=== PATIENT | male | born 1975 | race Hispanic/Latino ===

== ENCOUNTER 2018-11-16 09:40 | Inpatient (IN) ==
[2018-11-16 10:01] LABS: BASO# 0.02 X1000 (0.0-0.2); BASO% 0.2 % (0.0-0.8); EOS# 0.16 X1000 (0.0-0.7); EOS% 1.4 % (0.0-10.0); HEMATOCRIT 34.3 % (42.0-52.0); HEMOGLOBIN 11.9 g/dL (14.0-18.0); LYMPH# 1.51 X1000 (1.2-3.4); LYMPH% 13.7 % (20.5-51.1); MCH 37.7 PG (27-31); MCHC 34.7 g/dL (33-37); MCV 108.5 FL (81-99); MONO# 1.36 X1000 (0.11-0.59); MONO% 12.3 % (1.7-9.3); MPV 10.8 FL (7.4-10.4); NEUT% 72.4 % (42.2-75.2); PLT 125 X1000 (130-400); RBC 3.16 XMIL (4.7-6.1); WBC 11.05 X1000 (4.8-10.8)
[2018-11-16 10:14] LABS: URINE SOURCE CLEAN CATCH
[2018-11-16 10:17] LABS: BILIRUBIN URINE NEGATIVE (NEGATIVE); BLOOD URINE NEGATIVE (NEGATIVE); COLOR ORANGE; GLUCOSE URINE NEGATIVE (NEGATIVE); KETONE URINE TRACE mg/dL (NEGATIVE); LEUKOCYTES URINE TRACE (NEGATIVE); NITRITE URINE NEGATIVE (NEGATIVE); PROTEIN URINE 70 mg/dL (NEGATIVE); SP GRAVITY URINE 1.033; TURBIDITY URINE HAZY (CLEAR); UROBILINOGEN URINE 4 mg/dL (NORMAL)
[2018-11-16 10:19] LABS: AGAP 10; ALB/GLOB RATIO 0.7; ALBUMIN 2.7 g/dL (3.5-5.0); ALKALINE PHOSPHATASE 340 U/L (32-122); AMYLASE 66 U/L (20-200); BUN 9 mg/dL (8-22); CALCIUM 7.7 mg/dL (8.8-10.2); CHLORIDE 101 mmol/L (98-107); COSMO 267; CREATININE 0.9 mg/dL (0.7-1.2); ESTIMATED GFR > 60; GLUCOSE 127 mg/dL (70-104); GOT 122 U/L (10-34); GPT 52 U/L (10-44); LIPASE 38 U/L (13-60); POTASSIUM 4.1 mmol/L (3.5-5.1); SODIUM 133 mmol/L (136-145); TCO2 22 mmol/L (25-35); TOTAL BILIRUBIN 3.45 mg/dL (0.20-1.00); TOTAL PROTEIN 6.8 g/dL (6.3-8.3)
[2018-11-16 10:23] LABS: UR EPITHELIAL CELLS <10 /HPF (<10); URINE BACTERIA NEGATIVE /HPF; URINE WBC <10 /HPF (<10)
[2018-11-16 10:30] LABS: URINE CASTS NONE SEEN; URINE CRYSTALS CA OXALATE PRESENT
--- NOTE | 2018-11-16 10:32 | PROVIDER DOCUMENTATION ---
HPI-Abdominal Pain/GI Problem - General Chief Complaint: Abdominal Pain Stated Complaint: ABDOMINAL SWELLING RECHECK Time Seen by Provider: 11/16/18 10:16 Allergies/Adverse Reactions: Patient Allergies Allergy/AdvReac Type Severity Reaction Status Date / Time No Known Allergies Allergy Verified 11/16/18 09:53 Home Medications: Home Medication List Medication Instructions Recorded Confirmed Last Taken Type Pantoprazole [Protonix] 40 mg PO DAILY@0700 #90 tab 07/20/18 Unknown Rx Folic Acid 1 mg PO DAILY #30 tab 11/11/18 Unknown Rx Spironolactone [Aldactone] 25 mg PO DAILY #30 tab 11/11/18 Unknown Rx Thiamine [Vitamin B-1] 100 mg PO DAILY #30 tab 11/11/18 Unknown Rx Past History - Adult - PAST MEDICAL HISTORY-ADULT Major Childhood Illnesses: reports: denies history Cardiovascular: reports: denies history Respiratory: reports: denies history Gastrointestinal: reports: denies history Obstetrical/Gynecological: reports: denies history Genitourinary: reports: denies history Musculoskeletal: reports: denies history Neurological: reports: denies history Endocrine/Immune: reports: denies history Other Conditions: reports: denies history - PRIOR SURGERIES/PROCEDURES Surgical/Procedure History: reports: reviewed, not pertinent - IMMUNIZATION STATUS Childhood Immunizations: See Nurse Assessment Flu Vaccine: See Nurse Assessment Progress - PLAN OF CARE/RESULTS Progress/Plan/Lab Results: Vital Signs - 8 hr 11/16/18 09:51 Temperature 97.9 F Pulse Rate 113 H Respiratory Rate 18 Blood Pressure 121/84 O2 Sat by Pulse Oximetry 100 Laboratory Results - last 24 hr 11/16/18 11/16/18 11/16/18 09:51 09:51 09:51 WBC 11.05 H RBC 3.16 L Hgb 11.9 L Hct 34.3 L MCV 108.5 H MCH 37.7 H MCHC 34.7 RDW Std Deviation 13.0 Plt Count 125 L MPV 10.8 H Neut % (Auto) 72.4 Lymph % (Auto) 13.7 L [place] % (Auto) 12.3 H Eos % (Auto) 1.4 Baso % (Auto) 0.2 Neut # (Auto) 8.00 H Lymph # (Auto) 1.51 [place] # (Auto) 1.36 H Eos # (Auto) 0.16 Baso # (Auto) 0.02 Sodium 133 L Potassium 4.1 Chloride 101 Carbon Dioxide 22 L Anion Gap 10 BUN 9 Creatinine 0.9 Estimated GFR/1.73 m2 > 60 BUN/Creatinine Ratio 10 Glucose 127 H Calculated Osmolality 267 Calcium 7.7 L Total Bilirubin 3.45 H AST 122 H ALT 52 H Alkaline Phosphatase 340 H Total Protein 6.8 Albumin 2.7 L Globulin 4.1 Albumin/Globulin Ratio 0.7 Amylase 66 Lipase 38 Urine Source Urine Color Urine Turbidity Urine pH Ur Specific [place] Urine Protein Ur Glucose (Stick) Ur Ketones (Stick) Urine Blood Urine Nitrite Urine Bilirubin Urobilinogen Dipstick Urine Leukocytes Urine WBC (Auto) Urine RBC (Auto) U Epithel Cells (Auto) Urine Bacteria (Auto) Urine Crystals Small Round Cells Urine Casts Urine Yeast-like Cells Plasma/Serum Ethyl Alc 11/16/18 10:08 WBC RBC Hgb Hct MCV MCH MCHC RDW Std Deviation Plt Count MPV Neut % (Auto) Lymph % (Auto) [place] % (Auto) Eos % (Auto) Baso % (Auto) Neut # (Auto) Lymph # (Auto) [place] # (Auto) Eos # (Auto) Baso # (Auto) Sodium Potassium Chloride Carbon Dioxide Anion Gap BUN Creatinine Estimated GFR/1.73 m2 BUN/Creatinine Ratio Glucose Calculated Osmolality Calcium Total Bilirubin AST ALT Alkaline Phosphatase Total Protein Albumin Globulin Albumin/Globulin Ratio Amylase Lipase Urine Source CLEAN CATCH Urine Color ORANGE Urine Turbidity HAZY Urine pH 6.0 Ur Specific [place] 1.033 Urine Protein 70 A Ur Glucose (Stick) NEGATIVE Ur Ketones (Stick) TRACE A Urine Blood NEGATIVE Urine Nitrite NEGATIVE Urine Bilirubin NEGATIVE Urobilinogen Dipstick 4 A Urine Leukocytes TRACE A Urine WBC (Auto) <10 Urine RBC (Auto) 10-20 A U Epithel Cells (Auto) <10 Urine Bacteria (Auto) NEGATIVE Urine Crystals CA OXALATE PRESENT Small Round Cells Not Reportable Urine Casts NONE SEEN Urine Yeast-like Cells Not Reportable Plasma/Serum Ethyl Alc Orders Category Date Time Status Saline Loc DIRECTED Care 11/16/18 09:52 Active NPO Diet 11/16/18 09:52 Active ALCOHOL BLOOD Stat Lab 11/16/18 09:51 Completed AMMONIA [CHEM] Stat Lab 11/16/18 10:07 Ordered AMYLASE [CHEM] Stat Lab 11/16/18 09:51 Completed CBC WITH ELECTRONIC DIFF [HEME] Stat Lab 11/16/18 09:51 Completed COMPREHENSIVE METABOLIC PANEL [CHEM] Stat Lab 11/16/18 09:51 Completed LIPASE [CHEM] Stat Lab 11/16/18 09:51 Completed URINALYSIS W/POSS RFLX CULT [URINALYSIS] Stat Lab 11/16/18 10:08 Completed URINE CULTURE [RM] Routine Lab 11/16/18 10:23 Received URINE MANUAL MICROSCOPIC [URINALYSIS] Stat Lab 11/16/18 10:08 Completed Result Diagrams: 11/16/18 09:51 11/16/18 09:51 Departure - Departure Referrals and Follow-Ups: None,PCP [Primary Care Provider] -
[2018-11-16] MEDS ORDERED: LEVAQUIN PO ONE (10:44)
[2018-11-16] MEDS ORDERED: MORPHINE IV ONE ×2 (10:49→20:13)
[2018-11-16] MEDS ORDERED: ZOFRAN IV ONE (10:50)
[2018-11-16 10:53] LABS: INR 1.22; PROTIME 16.3 Seconds (11.0-16.0)
[2018-11-16 10:54] LABS: PTT 40.6 Seconds (22.3-41.8)
--- NOTE | 2018-11-16 10:57 | PROVIDER DOCUMENTATION ---
This chart was entered by Stephie Orourke Scribe, acting as scribe for Michael Martin MD. HPI-Abdominal Pain/GI Problem - General Chief Complaint: Abdominal Pain Stated Complaint: ABDOMINAL SWELLING RECHECK Time Seen by Provider: 11/16/18 10:16 Source: patient, old records Allergies/Adverse Reactions: Patient Allergies Allergy/AdvReac Type Severity Reaction Status Date / Time No Known Allergies Allergy Verified 11/16/18 09:53 Home Medications: Home Medication List Medication Instructions Recorded Confirmed Last Taken Type Pantoprazole [Protonix] 40 mg PO DAILY@0700 #90 tab 07/20/18 11/16/18 Unknown Rx Folic Acid 1 mg PO DAILY #30 tab 11/11/18 11/16/18 11/15/18 12:00 Rx Spironolactone [Aldactone] 25 mg PO DAILY #30 tab 11/11/18 11/16/18 11/15/18 12: 00 Rx Thiamine [Vitamin B-1] 100 mg PO DAILY #30 tab 11/11/18 11/16/18 11/15/18 12:00 Rx - History of Present Illness-ABD Nature of Presenting Problems: 43 y/o male presents to ED with worsening abdominal pain/swelling/bruising and diarrhea. Pt reports he was admitted 8 days ago for same and had paracentesis. Pt is alert and oriented. Abdominal Pain Onset Location: reports: generalized abdomen Pain Radiation: reports: no radiation Quality of Pain: reports: fullness Severity in ED: reports: moderate Onset/Duration: reports: unsure Timing: reports: still present, getting worse Activities at Onset: reports: none Exposure to sick contacts?: No Modifying Factors: improves with: nothing Associated Symptoms: reports: diarrhea, other (abdominal pain, bruising, swelling) Last BM: unsure Dark Stools Present?: reports: none noticed Rectal Bleeding: reports: none Rectal Pain: reports: none Similar Symptoms Previously?: Yes Recently seen or treated by another doctor?: Yes (admitted 8 days ago) Review of Systems - Adult - REVIEW OF SYSTEMS - ADULT Constitutional: denies: chills, fever Eyes: reports: no symptoms reported Ears, Nose, Mouth & Throat: reports: no symptoms reported Cardiovascular: denies: chest pain, palpitations Respiratory: denies: cough, shortness of breath Gastrointestinal: reports: abdominal pain, diarrhea, other (abdominal swelling/ bruising). denies: nausea, vomiting Genitourinary: reports: no symptoms reported Musculoskeletal: denies: back pain, joint pain Integumentary: reports: no symptoms reported Neurological: denies: dizziness/vertigo, seizure Psychiatric: reports: no symptoms reported Endocrine: reports: no symptoms reported Hematologic/Lymphatic: reports: no symptoms reported Allergic/Immunologic: reports: no symptoms reported All Other Systems: Reviewed and Negative Past History - Adult - PAST MEDICAL HISTORY-ADULT Review of Records: reports: Old Records Reviewed, Nursing Assessment Review, Medications Reviewed Major Childhood Illnesses: reports: denies history Cardiovascular: reports: denies history Respiratory: reports: denies history Gastrointestinal: reports: denies history, other (cirrhosis) Obstetrical/Gynecological: reports: denies history Genitourinary: reports: denies history Musculoskeletal: reports: denies history Neurological: reports: denies history Endocrine/Immune: reports: denies history Other Conditions: reports: denies history - PRIOR SURGERIES/PROCEDURES Surgical/Procedure History: reports: reviewed, not pertinent, orthopedic ( extremity) (bilateral legs, knee), other (nose) - IMMUNIZATION STATUS Childhood Immunizations: See Nurse Assessment Flu Vaccine: See Nurse Assessment - FAMILY HISTORY Family History: reviewed, not pertinent - SOCIAL HISTORY Smoking: greater than 1 pack/day Provider spent 3-5 mins advising pt. on dangers of tobacco.: Discussed manners to quit use, and f/u contacts for add'l counseling. Substance Use: alcohol, marijuana Alcohol Use Frequency: every day Living Situation: family Physical Exam-General - PHYSICAL EXAM-ADULT Initial Vital Signs Reviewed: Yes - CONSTITUTIONAL General Appearance: appears well, alert, no apparent distress - EYES Eyes: PERRL/EOMI, pink conjunctivae - HEAD, EARS, NOSE, MOUTH & THROAT HENMT: normocephalic/atraumatic, moist mucous membranes, normal ENT inspection - NECK Neck: non-tender, full range of motion - RESPIRATORY Respiratory: chest non-tender, lungs clear, normal breath sounds - CARDIOVASCULAR Cardiovascular: normal peripheral pulses, regular rate, rhythm - GASTROINTESTINAL (ABDOMEN) Abdominal Exam: normal bowel sounds, soft, distended, tenderness (diffuse), other (ascites) - MUSCULOSKELETAL Back Exam: normal inspection, no CVA tenderness Extremity: normal range of motion, non-tender, normal gait - SKIN Integumentary: normal color, warm/dry - NEUROLOGIC Neurologic: grossly normal - PSYCHIATRIC Psych/Mental Status: normal mood/affect, normal thought content, normal thought process Progress - PLAN OF CARE/RESULTS Progress/Plan/Lab Results: Vital Signs - 8 hr 11/16/18 09:51 Temperature 97.9 F Pulse Rate 113 H Respiratory Rate 18 Blood Pressure 121/84 O2 Sat by Pulse Oximetry 100 Laboratory Results - last 24 hr 11/16/18 11/16/18 11/16/18 09:51 09:51 09:51 WBC 11.05 H RBC 3.16 L Hgb 11.9 L Hct 34.3 L MCV 108.5 H MCH 37.7 H MCHC 34.7 RDW Std Deviation 13.0 Plt Count 125 L MPV 10.8 H Neut % (Auto) 72.4 Lymph % (Auto) 13.7 L [place] % (Auto) 12.3 H Eos % (Auto) 1.4 Baso % (Auto) 0.2 Neut # (Auto) 8.00 H Lymph # (Auto) 1.51 [place] # (Auto) 1.36 H Eos # (Auto) 0.16 Baso # (Auto) 0.02 Sodium 133 L Potassium 4.1 Chloride 101 Carbon Dioxide 22 L Anion Gap 10 BUN 9 Creatinine 0.9 Estimated GFR/1.73 m2 > 60 BUN/Creatinine Ratio 10 Glucose 127 H Calculated Osmolality 267 Calcium 7.7 L Total Bilirubin 3.45 H AST 122 H ALT 52 H Alkaline Phosphatase 340 H Total Protein 6.8 Albumin 2.7 L Globulin 4.1 Albumin/Globulin Ratio 0.7 Amylase 66 Lipase 38 Urine Source Urine Color Urine Turbidity Urine pH Ur Specific [place] Urine Protein Ur Glucose (Stick) Ur Ketones (Stick) Urine Blood Urine Nitrite Urine Bilirubin Urobilinogen Dipstick Urine Leukocytes Urine WBC (Auto) Urine RBC (Auto) U Epithel Cells (Auto) Urine Bacteria (Auto) Urine Crystals Small Round Cells Urine Casts Urine Yeast-like Cells Plasma/Serum Ethyl Alc 11/16/18 10:08 WBC RBC Hgb Hct MCV MCH MCHC RDW Std Deviation Plt Count MPV Neut % (Auto) Lymph % (Auto) [place] % (Auto) Eos % (Auto) Baso % (Auto) Neut # (Auto) Lymph # (Auto) [place] # (Auto) Eos # (Auto) Baso # (Auto) Sodium Potassium Chloride Carbon Dioxide Anion Gap BUN Creatinine Estimated GFR/1.73 m2 BUN/Creatinine Ratio Glucose Calculated Osmolality Calcium Total Bilirubin AST ALT Alkaline Phosphatase Total Protein Albumin Globulin Albumin/Globulin Ratio Amylase Lipase Urine Source CLEAN CATCH Urine Color ORANGE Urine Turbidity HAZY Urine pH 6.0 Ur Specific [place] 1.033 Urine Protein 70 A Ur Glucose (Stick) NEGATIVE Ur Ketones (Stick) TRACE A Urine Blood NEGATIVE Urine Nitrite NEGATIVE Urine Bilirubin NEGATIVE Urobilinogen Dipstick 4 A Urine Leukocytes TRACE A Urine WBC (Auto) <10 Urine RBC (Auto) 10-20 A U Epithel Cells (Auto) <10 Urine Bacteria (Auto) NEGATIVE Urine Crystals CA OXALATE PRESENT Small Round Cells Not Reportable Urine Casts NONE SEEN Urine Yeast-like Cells Not Reportable Plasma/Serum Ethyl Alc Orders Category Date Time Status Saline Loc DIRECTED Care 11/16/18 09:52 Active NPO Diet 11/16/18 09:52 Active ALCOHOL BLOOD Stat Lab 11/16/18 09:51 Completed AMMONIA [CHEM] Stat Lab 11/16/18 10:07 Ordered AMYLASE [CHEM] Stat Lab 11/16/18 09:51 Completed CBC WITH ELECTRONIC DIFF [HEME] Stat Lab 11/16/18 09:51 Completed COMPREHENSIVE METABOLIC PANEL [CHEM] Stat Lab 11/16/18 09:51 Completed LIPASE [CHEM] Stat Lab 11/16/18 09:51 Completed PROTIME WITH INR [COAG] Stat Lab 11/16/18 10:39 Uncollected PTT [COAG] Stat Lab 11/16/18 10:39 Uncollected URINALYSIS W/POSS RFLX CULT [URINALYSIS] Stat Lab 11/16/18 10:08 Completed URINE CULTURE [RM] Routine Lab 11/16/18 10:23 Received URINE MANUAL MICROSCOPIC [URINALYSIS] Stat Lab 11/16/18 10:08 Completed Result Diagrams: 11/16/18 09:51 11/16/18 09:51 - CONSULTS/PCP/HOSPITALIST Notification #1 *Consult/PCP/Hospitalist*: Dr. Olson Time Discussed: 10:30 Reason/Comments: paracentesis Consult Disposition: other (Dr. Olson recommends consulting radiology to see if they can perform paracentessi today. If not, pt needs to be admitted. He states if more than 5 L drained, give albumin. He requests pt be started on 500 mg oral levaquin for 10 days.) #2 Consult: Dr. Rivas- radiology Time Discussed: 10:40 Reason/Comments: paracentesis Consult Disposition: other (Dr. Rivas states he cannot come in today, but will be here tomorrow. Pt will be admitted and paracentesis performed tomorrow.) #3 Consult: ALICIA Scott for hospitalist Time Discussed: 10:47 Reason/Comments: paracentesis Consult Disposition: Admit (Admit to Dr. Hernandes.) Departure - Departure Date of Disposition Decision: 11/16/18 Time of Disposition Decision: 10:52 DIAGNOSIS: Ascites Qualifiers: Ascites type: due to alcoholic cirrhosis Qualified Code(s): K70.31 - Alcoholic cirrhosis of liver with ascites Abdominal pain Qualifiers: Abdominal location: generalized Qualified Code(s): R10.84 - Generalized abdominal pain Disposition: ADMITTED INPATIENT 09 Certified Medical Emergency: Emergent Condition: Stable Additional Freetext Instructions: ED Follow Up Instructions: You have been treated by a care provider in the Emergency Department. These instructions are being provided to you so you can have an understanding of how to care for yourself upon discharge. Upon discharge from the Emergency Department, you are responsible for making arrangements for follow-up care by a physician of your choice. Take all prescribed medications as directed. Return to the Emergency Department immediately for any new or worsening symptoms. You may call the Physician Referral phone number at [phone] to obtain a list of Physicians who are taking new patients. Referrals and Follow-Ups: None,PCP [Primary Care Provider] - Discharge Education: Abdominal Pain, Adult, [id number], Ascites - Critical Care Note This patient required my direct & personal management of CC.: No Attestation - Physician/ KEVEN Attestation Patient care was provided by Advanced Practice Provider:: No The physician spent face to face time with patient:: Yes Advanced Practice Provider documentation review:: Supervising physician onsite and consulted in the evaluation and care of this patient. The physician did have a face to face encounter with the patient. This chart was documented by the indicated scribe, (Stephie Orourke Scribe) and accurately reflects the services I performed and decisions made by me, Michael Martin MD, as attested by the provider's signature.
[2018-11-16] MEDS ORDERED: NICODERM PATCH TD ONE (11:33)
--- NOTE | 2018-11-16 13:03 | HISTORY AND PHYSICAL ---
CHIEF COMPLAINT: Abdominal distention. HISTORY OF PRESENT ILLNESS: Mr. Restrepo is a 43-year-old, male, who has significant history of alcoholic cirrhosis of the liver and was recently discharged from our service 4-days- ago. At that time he had ascites that was drained via paracentesis. Since that time he has had continued abdominal distention and he is now starting to have mild lower quadrant pain. He reports that he has not had any alcohol since before his last admission. He denies any nausea or vomiting. No hemoptysis or hematochezia. No hematemesis. He denies any fever or chills but he does report chronic diarrhea. The abdominal distention and discomfort brought him to the ER today. In the ER, he had labs and diagnostics done which showed his continued elevated liver function tests and macrocytic anemia. He will need admission for repeat paracentesis. Per the ER doctor, he spoke with Dr. Olson with GI who recommended p.o. Levaquin and to have paracentesis as soon as possible which will likely be in the morning. PAST MEDICAL HISTORY: 1. Alcoholic cirrhosis of the liver. 2. Alcohol dependence. 3. Macrocytic anemia. 4. Nicotine dependence. 5. Cannabis dependence. PAST SURGICAL HISTORY: None. MEDICATIONS: 1. Folic acid 1 mg daily. 2. Protonix 40 mg daily. 3. Aldactone 25 mg daily. 4. Vitamin B1 100 mg p.o. daily. ALLERGIES: NO KNOWN DRUG ALLERGIES. SOCIAL HISTORY: The patient has a significant alcohol history, however he reports he has not had any alcohol since before his last admission. He also has a history of marijuana dependence. He denies any other illicit drug use. He lives at home with his mother. FAMILY HISTORY: Noncontributory. PHYSICAL EXAM: VITAL SIGNS: Blood pressure 110/70, heart rate 108, respiratory rate 18, O2 saturation 100% on room air. Temperature 97.8 degrees Fahrenheit. GENERAL: This is a chronically ill-appearing 43-year-old, male, lying on the hospital bed in no acute distress. NEUROLOGIC: Awake, alert, oriented. Follows commands. No focal deficits. HEENT: Head is normocephalic and atraumatic. Pupils are equal, round and reactive to light. Sclerae are slightly icteric. Oral mucosa is slightly pale and dry. NECK: There is no JVD. CHEST: Clear to auscultation. CARDIOVASCULAR: Regular rate and rhythm. S1, S2 noted. There are no murmurs. GASTROINTESTINAL: Tense ascites noted with hyperactive bowel sounds. There is some mild discomfort to bilateral lower quadrant palpation. EXTREMITIES: Two-plus edema bilaterally. Pulses are palpable at 1+ bilaterally. DIAGNOSTIC DATA: WBC 11.05, hemoglobin 11.9, hematocrit 34.3, MCV 108.5, platelet count 125,000. INR 1.22. Sodium 133, potassium 4.1, chloride 101, CO2 22. Anion gap 10. BUN 9, creatinine 0.9, glucose is 127, calcium 7.7. Total bilirubin 3.45, AST 122, ALT 52, alkaline phosphatase 340. Albumin 2.7. UA is negative. Alcohol level is zero. ASSESSMENT AND PLAN: 1. Recurrent ascites: We will admit the patient and schedule a paracentesis for the morning. We will also write him 40 mg of IV Lasix now and continue his home medications while monitoring and correcting his electrolytes as needed. 2. Alcoholic cirrhosis of the liver: As above. We will continue to try to optimize his volume status, and give albumin if needed. No sign of encephalopathy at this time. We will check liver functions in the morning. 3. Macrocytic anemia: We will continue his home medications. 4. Alcohol dependence: Patient reports not having any alcohol for roughly one week. We will monitor him closely for any signs of withdrawal. At this time, there does not appear to be any withdrawal symptoms, but we will continue with multivitamin daily. 5. Nicotine dependence: Patient has been advised to quit smoking. Nicotine patch has been prescribed. 6. Deep venous thrombosis prophylaxis with SCDs. Further recommendations to follow. Dictated by ALICIA Blancas for Hola Dan MD Patient seen and examined by me face to face, all the laboratory, vitals signs and images were reviewed, patient presented to the emergency department with abdominal distention, he has a history of alcoholic liver cirrhosis, previous paracentesis, drug abuse, urine toxicology showed cannabinoids, benzodiazepines and narcotics, GI department has recommended to use levofloxacin due to his abdominal pain and likely SBP, he will be schedule to have a paracentesis tomorrow, physical exam showed abdominal distention, jaundice, basically anasarca, I agree with the BILLIARD TABLE REPAIRER's assessment and plan, Hola Colvin MD. cc: ALICIA Blancas MD Amit Arora, MD MTDD
[2018-11-16 13:53] LABS: AGAP 9; ALB/GLOB RATIO 0.6; ALBUMIN 2.6 g/dL (3.5-5.0); ALKALINE PHOSPHATASE 320 U/L (32-122); BUN 10 mg/dL (8-22); CALCIUM 8.4 mg/dL (8.8-10.2); CHLORIDE 99 mmol/L (98-107); COSMO 263; CREATININE 0.8 mg/dL (0.7-1.2); ESTIMATED GFR > 60; GLUCOSE 121 mg/dL (70-104); GOT 118 U/L (10-34); GPT 52 U/L (10-44); POTASSIUM 3.9 mmol/L (3.5-5.1); SODIUM 131 mmol/L (136-145); TCO2 23 mmol/L (25-35); TOTAL BILIRUBIN 3.62 mg/dL (0.20-1.00); TOTAL PROTEIN 6.9 g/dL (6.3-8.3)
[2018-11-16] MEDS ORDERED: LASIX IV ONE (14:40)
[2018-11-16] MEDS ORDERED: SODIUM CHLORIDE 0.9% INJ SCH (14:45)
[2018-11-16] MEDS ORDERED: PROTONIX IV SCH (14:45)
[2018-11-16] MEDS: ATIVAN IV PRN (21:21)
[2018-11-17 04:31] LABS: UR AMPHETAMINES QUAL NONE DETECTED (NONE DETECT); UR BARBITUATES QUAL NONE DETECTED (NONE DETECT); UR BENZODIAZEPIN QUAL PRESUMPTIVE POSITIVE (NONE DETECT); UR CANNABINOIDS QUAL PRESUMPTIVE POSITIVE (NONE DETECT); UR COCAINE QUAL NONE DETECTED (NONE DETECT); UR METHADONE QUAL NONE DETECTED (NONE DETECT); UR OPIATES QUAL PRESUMPTIVE POSITIVE (NONE DETECT); UR OXYCODONE QUAL NONE DETECTED (NONE DETECT); UR PCP QUAL NONE DETECTED (NONE DETECT)
[2018-11-17 07:33] LABS: BASO# 0.01 X1000 (0.0-0.2); BASO% 0.1 % (0.0-0.8); EOS# 0.15 X1000 (0.0-0.7); EOS% 2.2 % (0.0-10.0); HEMATOCRIT 31.9 % (42.0-52.0); HEMOGLOBIN 11.3 g/dL (14.0-18.0); IMM GRAN# 0.02 X1000 (0.0-0.04); IMM GRAN% 0.3 % (0.0-0.5); LYMPH# 1.35 X1000 (1.2-3.4); LYMPH% 19.6 % (20.5-51.1); MCH 38.2 PG (27-31); MCHC 35.4 g/dL (33-37); MCV 107.8 FL (81-99); MONO# 0.83 X1000 (0.11-0.59); MPV 10.9 FL (7.4-10.4); NEUT# 4.53 X1000 (1.4-6.5); NEUT% 65.8 % (42.2-75.2); PLT 122 X1000 (130-400); RBC 2.96 XMIL (4.7-6.1); RDW 13.1 % (11.5-14.5); WBC 6.89 X1000 (4.8-10.8)
[2018-11-17 08:02] LABS: AGAP 11; ALB/GLOB RATIO 0.7; ALBUMIN 2.3 g/dL (3.5-5.0); ALKALINE PHOSPHATASE 285 U/L (32-122); BUN 9 mg/dL (8-22); CALCIUM 7.7 mg/dL (8.8-10.2); CHLORIDE 101 mmol/L (98-107); COSMO 271; CREATININE 0.8 mg/dL (0.7-1.2); ESTIMATED GFR > 60; GLUCOSE 105 mg/dL (70-104); GOT 91 U/L (10-34); GPT 41 U/L (10-44); POTASSIUM 3.5 mmol/L (3.5-5.1); SODIUM 136 mmol/L (136-145); TCO2 24 mmol/L (25-35); TOTAL BILIRUBIN 2.56 mg/dL (0.20-1.00); TOTAL PROTEIN 5.8 g/dL (6.3-8.3)
[2018-11-17] MEDS: ATIVAN IV PRN ×3 (08:46→23:49)
[2018-11-17] MEDS ORDERED: MAGNESIUM SULFATE 2 GM/S.W.I. 2 GM/50 ML IVPB IV ONE (09:57)
--- NOTE | 2018-11-17 10:17 | PROGRESS NOTE ---
DATE: 11/17/2018 SUBJECTIVE: This patient is resting comfortably in bed, but it looks like he is having more tremors. As per the patient, his last drink was about a week ago. His urine toxicology showed benzodiazepines, cannabinoids and opiates and the serum alcohol level was not detected. He has been placed on thiamine. He will get Ativan as needed. He is getting also a nicotine patch. Today he is scheduled for a paracentesis. Hopefully this patient can be discharged in the next 24 to 48 hours. OBJECTIVE: Vital Signs: Temperature 97.6 degrees, pulse 101, respiratory rate 16, blood pressure 108/71, oxygen saturation 100% on room air. HEENT: Head normocephalic. No trauma. PERRLA. Neck: Supple. No JVD. Central trachea. Chest: Decreased breath sounds at the bases with some rales at the bases as well. Skin: Slightly jaundiced as well as his sclerae are a little bit icteric. Abdomen: He does have some tense ascites with hyperactive bowel sounds and mild generalized tenderness to palpation. No signs of peritoneal irritation. Extremities: 2+ lower extremity edema. No clubbing. No cyanosis. Neurological: The patient is alert and oriented x3. No focal deficit. He has tremors mostly at the level of the upper extremities. LABORATORY: WBC 6.8, hemoglobin 11.3, hematocrit 31.9, platelets 122,000. Sodium 136, potassium 3.5, chloride 101, bicarbonate 24, BUN 9, creatinine 0.8, glucose 105, calcium 7.7, magnesium 1.4. AST 91, ALT 41, alkaline phosphatase 285, albumin 2.3. ASSESSMENT AND PLAN: 1. Recurrent ascites with abdominal pain likely due to alcoholic liver cirrhosis. This patient has been scheduled for a paracentesis today. We will monitor. We will wait for the results. 2. Alcoholic liver cirrhosis, as above. We will continue to monitor. His last drink was about 1 week ago. His alcohol level was negative upon admission. 3. Macrocytic anemia. Continue to monitor. 4. Hypomagnesemia. I will replace the magnesium. 5. Possible withdrawal symptoms. This patient started having some tremors at the level of the upper extremities. He will receive a dose of Ativan and we will monitor this patient closely. As per the patient, his last drink was a week ago and he is willing to stop. 6. Drug abuse. This patient has been tested positive for cannabinoids, opiates and benzodiazepines. He has been highly advised against drug abuse. I will continue with daily cessation education. 7. Deep vein thrombosis prophylaxis with SCDs. cc: Hola Dan MD
--- NOTE | 2018-11-17 10:50 | Diag Imaging Result Doc PS360 ---
EXAM: US ABD PARACENTESIS W S/I HISTORY: etoh cirrhosis, ascites TECHNIQUE: Ultrasound-guided paracentesis COMPARISON: None. FINDINGS: Prior to the procedure I discussed the risk and benefits with the patient. Primary risks include bleeding, infection, bowel injury, and liver injury. Questions were answered. Consent was given. The permit was signed. Ultrasound was used to localize the largest fluid collection in the right abdomen. This area was cleaned and draped in the normal fashion. Lidocaine was used as a local anesthetic. Needle and catheter were advanced into the fluid collection on the first attempt without difficulty. The needle was withdrawn. The catheter was hooked to suction. Approximately 3.5 L of thin yellowish fluid were withdrawn without difficulty. The catheter was then withdrawn. No immediate postprocedural complications. IMPRESSION: Successful ultrasound-guided paracentesis. Electronically signed by Julian Galeano 11/17/2018 10:47 AM
[2018-11-17 12:28] LABS: ALBUMIN BODY FLUID 0.4 g/dL; AMYLASE BODY FLUID 29 U/L; TOTAL PROT BODY FLUID 0.7 g/dL
[2018-11-17 13:18] LABS: BODY FLUID SOURCE PERITONEAL FLUID; WBC BF 120 /cumm
[2018-11-17 13:19] LABS: MONOS 60 %; POLYS 40 %
[2018-11-17] MEDS: VITAMIN B-1 PO SCH (14:38)
[2018-11-17] MEDS: PROTONIX PO SCH (14:39)
[2018-11-17] MEDS: NICODERM PATCH TD SCH (14:39)
[2018-11-17] MEDS: LEVAQUIN PO SCH (14:39)
[2018-11-17] MEDS: FOLIC ACID PO SCH (14:39)
[2018-11-17] MEDS: ALDACTONE PO SCH (14:39)
[2018-11-18] MEDS: PROTONIX PO SCH (06:14)
[2018-11-18 08:29] LABS: AGAP 10; ALB/GLOB RATIO 0.6; ALKALINE PHOSPHATASE 266 U/L (32-122); BUN 9 mg/dL (8-22); CALCIUM 7.2 mg/dL (8.8-10.2); CHLORIDE 102 mmol/L (98-107); COSMO 269; CREATININE 0.7 mg/dL (0.7-1.2); ESTIMATED GFR > 60; GLUCOSE 96 mg/dL (70-104); GOT 84 U/L (10-34); GPT 36 U/L (10-44); MAGNESIUM 1.7 mg/dL (1.5-2.7); PHOSPHORUS 3.2 mg/dL (2.7-4.5); POTASSIUM 3.7 mmol/L (3.5-5.1); SODIUM 135 mmol/L (136-145); TCO2 23 mmol/L (25-35); TOTAL BILIRUBIN 2.14 mg/dL (0.20-1.00); TOTAL PROTEIN 5.4 g/dL (6.3-8.3)
[2018-11-18 08:51] LABS: BASO# 0.01 X1000 (0.0-0.2); BASO% 0.1 % (0.0-0.8); EOS% 1.5 % (0.0-10.0); HEMATOCRIT 31.8 % (42.0-52.0); HEMOGLOBIN 10.9 g/dL (14.0-18.0); IMM GRAN# 0.02 X1000 (0.0-0.04); IMM GRAN% 0.3 % (0.0-0.5); LYMPH# 1.39 X1000 (1.2-3.4); LYMPH% 20.7 % (20.5-51.1); MCH 36.7 PG (27-31); MCHC 34.3 g/dL (33-37); MCV 107.1 FL (81-99); MONO# 0.78 X1000 (0.11-0.59); MONO% 11.6 % (1.7-9.3); MPV 10.6 FL (7.4-10.4); NEUT% 65.8 % (42.2-75.2); PLT 140 X1000 (130-400); RBC 2.97 XMIL (4.7-6.1); RDW 13.1 % (11.5-14.5)
[2018-11-18] MEDS: NICODERM PATCH TD SCH (09:59)
[2018-11-18] MEDS: ALDACTONE PO SCH (09:59)
[2018-11-18] MEDS: LEVAQUIN PO SCH (10:00)
[2018-11-18] MEDS: FOLIC ACID PO SCH (10:00)
[2018-11-18] MEDS: VITAMIN B-1 PO SCH (10:00)
[2018-11-18 10:01] LABS: EOS 2 % (1-10); LYMPHS 18 % (21-51); MONO 8 % (1-9); SEGS 72 % (42-75)
[2018-11-18 10:02] LABS: ANISOCYTOSIS 1+; HYPOCHROM 1+
[2018-11-18] MEDS: MORPHINE IV PRN ×4 (11:16→23:01)
[2018-11-18] MEDS: LIBRIUM PO SCH ×3 (12:03→23:01)
[2018-11-19] MEDS: ATIVAN IV PRN (04:03)
[2018-11-19] MEDS: LIBRIUM PO SCH (04:54)
[2018-11-19] MEDS: PROTONIX PO SCH (06:33)
[2018-11-19 07:19] VITALS: BP 101/71
[2018-11-19] MEDS: ALDACTONE PO SCH (10:02)
[2018-11-19] MEDS: NICODERM PATCH TD SCH (10:03)
[2018-11-19] MEDS: VITAMIN B-1 PO SCH (10:04)
[2018-11-19] MEDS: LEVAQUIN PO SCH (10:04)
[2018-11-19] MEDS: FOLIC ACID PO SCH (10:04)
--- NOTE | 2018-11-19 10:35 | DISCHARGE SUMMARY ---
ADMISSION DATE: 11/16/2018 DISCHARGE DATE: 11/19/2018 CONSULTATIONS: None. PERTINENT PROCEDURES: Ultrasound-guided paracentesis where they removed approximately 3.5 L of thin, yellowish fluid that was withdrawn without difficulty. DISCHARGE DIAGNOSES: 1. Recurrent ascites with abdominal pain secondary to alcoholic liver cirrhosis. The patient underwent an ultrasound-guided paracentesis where they removed 3.5 L of yellowish fluid without difficulty. 2. Alcoholic liver cirrhosis. See #1. The patient's last drink was about a week ago. He has been encouraged to continue with alcohol cessation. 3. Microcytic anemia. 4. Hypomagnesium, resolved. 5. Alcohol dependence. Again, the patient has been off alcohol for roughly a week. Again, he was monitored for any signs and symptoms of withdrawal, treated appropriately. 6. Nicotine dependence. The patient has been counseled on smoking cessation as well as the means to quit. 7. Drug abuse. Patient tested positive for cannabinoids and opiates, as well as benzodiazepines. He had previously been on benzodiazepines for previous admission for alcohol withdrawal. He was educated against drug abuse, as well as daily cessation education. HOSPITAL COURSE: Briefly, Mr. gN is a 43-year-old male who has a significant history of alcoholic cirrhosis of the liver. He was recently discharged from our service. At that time, he had ascites where he underwent a paracentesis. He was discharged home. Since that time, he continued to have abdominal distention and started to have mild lower quadrant pain. He had not had any alcohol since his previous admission. His abdominal discomfort is what brought him back to the ED. He continued to have elevated liver function tests and microcytic anemia. He was admitted for repeat paracentesis at the urging of Dr. Olson who recommended p.artemio Estrada to have the paracentesis, for which they leon out 3.5 L of yellow-tinged fluid. He tolerated the procedure well without any complications. He was monitored closely for any alcohol withdrawal in house. He has had a stable clinical course and is ready to be discharged back home. VITAL SIGNS: At time of discharge, temperature is 97.9 degrees, heart rate 88, respirations 16, blood pressure 101/71, O2 is 100% on room air. DISCHARGE DIET: Mechanical soft. DISCHARGE MEDICATIONS: 1. Folic acid 1 mg p.o. daily. 2. NicoDerm patch 21 mg TD daily. 3. Protonix 40 mg p.o. daily. 4. Aldactone 25 mg p.o. daily. 5. Vitamin B1 100 mg p.o. daily. FOLLOW-UP: Mr. Ng is being discharged back home with self care. He has been educated on alcohol cessation, as well as illicit drug use cessation and nicotine dependence as well as smoking cessation and the means to quit. He is to take all medications as prescribed. He can return to the ED or call 911 for any worsening of symptoms. Dictated by ALICIA Wilson for Rubens Griggs MD Addendum: Patient seen and examined by myself. Agree with ALICIA note. It reflects my assessment and plan. Patient is being discharged in stable condition to home. He was strongly advised to stop drinking alcohol. He acknowledges understanding. cc: Rubens Griggs MD MTDHazel
== END 2018-11-19 11:30 | disposition home or self-care (01) | DRG 434 ==
LOC: 3N 09:40 → ED 09:40 → SUATTDRO 11:30 → OBSVTOIN 11:30
PROVIDERS: ATTEND Internal Medicine
CPT/HCPCS: 49083; 80053; 80101; 80301; 80307; 80320; 80324; 80345; 80346; 80353; 80358; 80361; 80365; 81001; 82042; 82055; 82140; 82150; 83690; 83735; 83992; 84100; 84157; 85025; 85610; 85730; 87015; 87070; 87075; 87088; 87116; 87206; 89051; 96374; 96375; 99285; A9270; G0431; G0434; G0479; G0480; G6040; J1940; J2060; J2270; J2405; J3475

== ENCOUNTER 2018-11-28 13:28 | Inpatient (IN) ==
[2018-11-28 14:13] LABS: BASO# 0.02 X1000 (0.0-0.2); BASO% 0.2 % (0.0-0.8); EOS# 0.33 X1000 (0.0-0.7); EOS% 3.4 % (0.0-10.0); HEMATOCRIT 37.1 % (42.0-52.0); HEMOGLOBIN 12.8 g/dL (14.0-18.0); LYMPH# 2.08 X1000 (1.2-3.4); LYMPH% 21.2 % (20.5-51.1); MCH 37.4 PG (27-31); MCHC 34.5 g/dL (33-37); MCV 108.5 FL (81-99); MONO# 1.21 X1000 (0.11-0.59); MONO% 12.3 % (1.7-9.3); MPV 9.6 FL (7.4-10.4); NEUT# 6.18 X1000 (1.4-6.5); NEUT% 62.9 % (42.2-75.2); PLT 194 X1000 (130-400); RBC 3.42 XMIL (4.7-6.1); RDW 12.7 % (11.5-14.5); WBC 9.82 X1000 (4.8-10.8)
[2018-11-28 14:17] LABS: AGAP 11; ALB/GLOB RATIO 0.6; ALBUMIN 2.5 g/dL (3.5-5.0); ALKALINE PHOSPHATASE 216 U/L (32-122); AMYLASE 96 U/L (20-200); BUN 11 mg/dL (8-22); CALCIUM 8.1 mg/dL (8.8-10.2); CHLORIDE 101 mmol/L (98-107); COSMO 265; CREATININE 0.8 mg/dL (0.7-1.2); ESTIMATED GFR > 60; GLUCOSE 111 mg/dL (70-104); GOT 58 U/L (10-34); GPT 23 U/L (10-44); LIPASE 42 U/L (13-60); POTASSIUM 3.9 mmol/L (3.5-5.1); SODIUM 132 mmol/L (136-145); TCO2 20 mmol/L (25-35); TOTAL BILIRUBIN 1.46 mg/dL (0.20-1.00); TOTAL PROTEIN 6.6 g/dL (6.3-8.3)
--- NOTE | 2018-11-28 16:33 | PROVIDER DOCUMENTATION ---
HPI-Abdominal Pain/GI Problem - General Chief Complaint: Abdominal Pain Stated Complaint: STOMACH BLOAT Time Seen by Provider: 11/28/18 16:00 Allergies/Adverse Reactions: Patient Allergies Allergy/AdvReac Type Severity Reaction Status Date / Time No Known Allergies Allergy Verified 11/16/18 09:53 Home Medications: Home Medication List Medication Instructions Recorded Confirmed Last Taken Type Pantoprazole [Protonix] 40 mg PO DAILY@0700 #90 tab 07/20/18 11/16/18 Unknown Rx Folic Acid 1 mg PO DAILY #30 tab 11/11/18 11/16/18 11/15/18 12:00 Rx Spironolactone [Aldactone] 25 mg PO DAILY #30 tab 11/11/18 11/16/18 11/15/18 12: 00 Rx Thiamine [Vitamin B-1] 100 mg PO DAILY #30 tab 11/11/18 11/16/18 11/15/18 12:00 Rx Nicotine Patch [Nicoderm Patch] 21 mg TD DAILY [id number] 11/19/18 Unknown Rx - History of Present Illness-ABD Nature of Presenting Problems: Patient with Hx of liver cirrhosis present to the ED due to increasing abdominal distension, pain, LE edema. Abdominal Pain Onset Location: reports: epigastric Pain Radiation: reports: no radiation Quality of Pain: reports: fullness Onset/Duration: reports: unsure Timing: reports: still present Activities at Onset: reports: none Exposure to sick contacts?: No Associated Symptoms: denies: constipation, genitourinary problems, nausea, vomiting Last BM: unsure Dark Stools Present?: reports: none noticed Rectal Bleeding: reports: none Review of Systems - Adult - REVIEW OF SYSTEMS - ADULT Constitutional: reports: no symptoms reported Eyes: reports: no symptoms reported Ears, Nose, Mouth & Throat: reports: no symptoms reported Cardiovascular: reports: no symptoms reported Respiratory: reports: no symptoms reported Gastrointestinal: reports: see HPI Genitourinary: reports: no symptoms reported Past History - Adult - PAST MEDICAL HISTORY-ADULT Review of Records: reports: Old Records Reviewed, Nursing Assessment Review, Medications Reviewed, Social history reviewed & non-contributory. Major Childhood Illnesses: reports: denies history Cardiovascular: reports: denies history Respiratory: reports: denies history Gastrointestinal: reports: denies history, other (cirrhosis) Obstetrical/Gynecological: reports: denies history Genitourinary: reports: denies history Musculoskeletal: reports: denies history Neurological: reports: denies history Endocrine/Immune: reports: denies history Other Conditions: reports: denies history - PRIOR SURGERIES/PROCEDURES Surgical/Procedure History: reports: reviewed, not pertinent, orthopedic ( extremity) (bilateral legs, knee), other (nose) - IMMUNIZATION STATUS Childhood Immunizations: See Nurse Assessment Flu Vaccine: See Nurse Assessment - FAMILY HISTORY Family History: reviewed, not pertinent Physical Exam-General - PHYSICAL EXAM-ADULT Initial Vital Signs Reviewed: Yes - CONSTITUTIONAL General Appearance: alert, no apparent distress - HEAD, EARS, NOSE, MOUTH & THROAT HENMT: normocephalic/atraumatic, moist mucous membranes - NECK Neck: non-tender, full range of motion, supple - RESPIRATORY Respiratory: lungs clear, normal breath sounds - CARDIOVASCULAR Cardiovascular: normal peripheral pulses, regular rate, rhythm, other (+3 pitting B/L LE up to below knee) - GASTROINTESTINAL (ABDOMEN) Abdominal Exam: normal bowel sounds, distended, guarding, tenderness Progress - PLAN OF CARE/RESULTS Progress/Plan/Lab Results: Vital Signs - 8 hr 11/28/18 13:35 11/28/18 16:04 Temperature 98.3 F Pulse Rate 117 H 102 H Respiratory Rate 18 17 Blood Pressure 121/85 O2 Sat by Pulse Oximetry 100 Laboratory Results - last 24 hr 11/28/18 11/28/18 13:38 13:38 WBC 9.82 RBC 3.42 L Hgb 12.8 L Hct 37.1 L MCV 108.5 H MCH 37.4 H MCHC 34.5 RDW Std Deviation 12.7 Plt Count 194 MPV 9.6 Neut % (Auto) 62.9 Lymph % (Auto) 21.2 Crane % (Auto) 12.3 H Eos % (Auto) 3.4 Baso % (Auto) 0.2 Neut # (Auto) 6.18 Lymph # (Auto) 2.08 Crane # (Auto) 1.21 H Eos # (Auto) 0.33 Baso # (Auto) 0.02 Sodium 132 L Potassium 3.9 Chloride 101 Carbon Dioxide 20 L Anion Gap 11 BUN 11 Creatinine 0.8 Estimated GFR/1.73 m2 > 60 BUN/Creatinine Ratio 14 Glucose 111 H Calculated Osmolality 265 Calcium 8.1 L Total Bilirubin 1.46 H AST 58 H ALT 23 Alkaline Phosphatase 216 H Total Protein 6.6 Albumin 2.5 L Globulin 4.1 Albumin/Globulin Ratio 0.6 Amylase 96 Lipase 42 Orders Category Date Time Status Saline Loc DIRECTED Care 11/28/18 13:38 Active NPO Diet 11/28/18 13:38 Active AMYLASE [CHEM] Stat Lab 11/28/18 13:38 Completed CBC WITH ELECTRONIC DIFF [HEME] Stat Lab 11/28/18 13:38 Completed COMPREHENSIVE METABOLIC PANEL [CHEM] Stat Lab 11/28/18 13:38 Completed LIPASE [CHEM] Stat Lab 11/28/18 13:38 Completed URINALYSIS W/POSS RFLX CULT [URINALYSIS] Stat Lab 11/28/18 13:38 Uncollected Patient care, assessment and plan discussed with the attending physician Dr. Gillespie and he agree with the plan as documented. Result Diagrams: 11/28/18 13:38 11/28/18 13:38 - CONSULTS/PCP/HOSPITALIST Notification #1 *Consult/PCP/Hospitalist*: CRYSTAL Kirk admitting for Dr. Marcelino Time Discussed: 17:45 Consult Disposition: Admit (Hx, PE and DDX. discussed with CRYSTAL Kirk, accepted.) Departure - Departure Date of Disposition Decision: 11/28/18 Time of Disposition Decision: 17:46 DIAGNOSIS: Abdominal guarding Alcoholic cirrhosis of liver Qualifiers: Ascites presence: with ascites Qualified Code(s): K70.31 - Alcoholic cirrhosis of liver with ascites Ascites Qualifiers: Ascites type: due to alcoholic cirrhosis Qualified Code(s): K70.31 - Alcoholic cirrhosis of liver with ascites Disposition: ADMITTED INPATIENT 09 Certified Medical Emergency: Emergent Condition: Stable - Critical Care Note This patient required my direct & personal management of CC.: No Attestation - Physician/ KEVEN Attestation Patient care was provided by Advanced Practice Provider:: No The physician spent face to face time with patient:: Yes Advanced Practice Provider documentation review:: Supervising physician onsite and consulted in the evaluation and care of this patient. The physician did have a face to face encounter with the patient.
[2018-11-28] MEDS ORDERED: ROCEPHIN 2 GM in NS 50 ML IV ONE (17:48)
[2018-11-28 20:59] LABS: URINE SOURCE CLEAN CATCH
[2018-11-28 21:04] LABS: BILIRUBIN URINE NEGATIVE (NEGATIVE); BLOOD URINE NEGATIVE (NEGATIVE); COLOR YELLOW; GLUCOSE URINE NEGATIVE (NEGATIVE); KETONE URINE TRACE mg/dL (NEGATIVE); LEUKOCYTES URINE NEGATIVE (NEGATIVE); NITRITE URINE NEGATIVE (NEGATIVE); PROTEIN URINE TRACE mg/dL (NEGATIVE); SP GRAVITY URINE 1.023; TURBIDITY URINE CLEAR (CLEAR); UROBILINOGEN URINE NORMAL (NORMAL)
[2018-11-28 21:06] LABS: UR EPITHELIAL CELLS <10 /HPF (<10); URINE BACTERIA NEGATIVE /HPF; URINE RBC <10 /HPF (<10); URINE WBC <10 /HPF (<10)
[2018-11-28] MEDS ORDERED: ZOFRAN IV PRN (21:13)
[2018-11-28] MEDS ORDERED: LASIX IV SCH (21:13)
[2018-11-28] MEDS ORDERED: VITAMIN B-1 PO ONE (21:13)
[2018-11-28] MEDS ORDERED: ALDACTONE PO ONE (21:13)
[2018-11-28] MEDS ORDERED: NICODERM PATCH TD ONE (21:13)
[2018-11-28] MEDS ORDERED: PROTONIX PO ONE (21:13)
[2018-11-28] MEDS ORDERED: FOLIC ACID PO ONE (21:13)
[2018-11-28 21:37] LABS: INR 1.13; PROTIME 15.4 Seconds (11.0-16.0)
--- NOTE | 2018-11-28 21:43 | HISTORY AND PHYSICAL ---
PRIMARY CARE PROVIDER: None. RESPIRATORY SCIENTIST: None. CHIEF COMPLAINT: Abdominal pain, abdominal fullness, lower extremity edema. HISTORY OF PRESENT ILLNESS: Mr. Ng is a 43-year-old male who is known to the hospitalist service for significant history of alcoholic cirrhosis of the liver. He had recently been discharged from our service on 11/19/2018 for recurrent ascites and abdominal pain secondary to his alcoholic liver cirrhosis. He underwent ultrasound-guided paracentesis, where they removed 3.5 L of yellowish fluid. The patient has been free of alcohol for over 3 weeks now. He continues to smoke tobacco. He states that he has been taking the 3 medications he was prescribed, although under his home medications and only looks like he has filled his folic acid and thiamine from [facility]. He states his abdomen distention and discomfort did improve after his last paracentesis; however, a few days later, the fluid starts reaccumulating. He noticed over the last 2 weeks that he was starting to have some lower extremity edema, then he started having bilateral right and left lower quadrant pain. It was sharp and stabbing, intermittent. It only lasts for a few seconds. He states that this is new. No fever. He has had some chills. He has been positive for nausea as well as vomiting a couple of times over the last week. He does have diarrhea. He does have a cough that he states that is his normal smoker cough. No shortness of breath, per se. He just feels abdominal pressure and fullness. He has not really had an appetite and when he does feel hunger, he is not able to eat as much because of the swelling. He denies any chest pain or dizziness. No palpitations. No headache. ED Doctor has given him a dose of Rocephin. He was concerned for peritonitis; however, the patient has had no reported fevers. His white count is not elevated. We will set him up for an abdominal ultrasound-guided paracentesis in the a.m. We will continue with IV Lasix and Aldactone, and we will give him some albumin after his paracentesis. PAST MEDICAL HISTORY: 1. Recurrent ascites with abdominal pain secondary to alcoholic liver cirrhosis. 2. Alcoholic liver cirrhosis. 3. Microcytic anemia. 4. Alcohol dependence. The patient has been alcohol-free for 3 weeks. 5. Nicotine dependence. 6. Drug abuse. His last admission he tested positive for cannabis and opiates. PAST SURGICAL HISTORY: Status post 2 ultrasound-guided paracenteses. MEDICATIONS: 1. Folic acid 1 mg p.o. daily. 2. Protonix 40 mg p.o. daily. 3. Aldactone 25 mg p.o. daily. 4. Vitamin B1, 100 mg p.o. daily. ALLERGIES: No known drug allergies. FAMILY HISTORY: Noncontributory. SOCIAL HISTORY: The patient has a significant alcohol history. He has been alcohol-free for 3 weeks. He also has marijuana dependence. He lives with family. PHYSICAL EXAMINATION: VITAL SIGNS: Temperature is 98.3 degrees, heart rate 102, respirations 17, blood pressure 121/85, O2 is 100% on room air. GENERAL: Mr. Ng is a 43-year-old male who is lying on the stretcher in no acute distress. HEENT: Atraumatic, normocephalic. PERRL. Sclerae are slightly icteric. Mucous membranes are pale and dry. NECK: Supple. Trachea midline. CV: S1, S2 appreciated. No murmurs, gallops or rubs noted. There is no JVD. The patient has 3+ pitting pedal edema, 2+ pitting edema from the lower extremities up into the abdomen around the back. RESPIRATORY: Lung sounds clear throughout all lung lizama. GASTROINTESTINAL: The patient's abdomen is firm. Mild discomfort to bilateral lower quadrants with palpation. NEUROLOGIC: The patient is alert and oriented x4. Follows commands. Moves all extremities. DIAGNOSTIC DATA: None. LABORATORY DATA: White count 9, hemoglobin and hematocrit of 12 and 37, platelet count of 194,000. PT and INR have been ordered. Sodium 132, potassium 3.9, BUN 11, creatinine 0.8, blood glucose is 111, total bilirubin is 1.46, AST 58, ALT 23, alkaline phosphatase is 216, albumin is 2.5, amylase 96, lipase 42. ASSESSMENT AND PLAN: 1. Recurrent ascites with abdominal pain secondary to alcoholic liver cirrhosis. The patient will be set up for an ultrasound-guided paracentesis in the a.m. We will continue with intravenous Lasix and spironolactone. He was given intravenous Rocephin to cover for any spontaneous bacterial peritonitis. We will await cultures in the morning and reinitiate antibiotic then. 2. Alcoholic liver cirrhosis. The patient's last drink was 3 weeks ago. He has been encouraged to continue with alcohol cessation. 3. Microcytic anemia. We will continue with folic acid. 4. Mild hyponatremia. Aware. 5. Alcohol dependence. 6. Nicotine dependence. The patient has been educated on smoking cessation as well as the means to quit, and will be provided with a NicoDerm patch. 7. Drug abuse. The patient does smoke cannabis, and previously tested positive for cannabinoids, opiates and benzodiazepines. He was educated on drug abuse as well as daily cessation, and will need daily cessation. Further recommendations to follow physician evaluation, laboratory and diagnostic data. Dictated by ALICIA Wilson for Quang Marcelino MD cc: MD Keven Toscano MD I have seen and examined Mr Ng today. I have also reviewed his labs and imaging studies. Ms Ng presents massive symptomatic ascites from cirrhosis of liver. I agree with above HPI and the plan reflects my opinion discussed with the INVESTMENT ANALYST. SELMA
[2018-11-29] MEDS: PROTONIX PO SCH (06:03)
[2018-11-29 07:34] LABS: BASO# 0.02 X1000 (0.0-0.2); BASO% 0.3 % (0.0-0.8); EOS% 2.6 % (0.0-10.0); HEMATOCRIT 34.7 % (42.0-52.0); HEMOGLOBIN 11.8 g/dL (14.0-18.0); IMM GRAN# 0.02 X1000 (0.0-0.04); IMM GRAN% 0.3 % (0.0-0.5); LYMPH# 1.69 X1000 (1.2-3.4); LYMPH% 22.4 % (20.5-51.1); MCH 36.5 PG (27-31); MCV 107.4 FL (81-99); MONO# 0.75 X1000 (0.11-0.59); MONO% 9.9 % (1.7-9.3); MPV 9.4 FL (7.4-10.4); NEUT# 4.87 X1000 (1.4-6.5); NEUT% 64.5 % (42.2-75.2); PLT 181 X1000 (130-400); RBC 3.23 XMIL (4.7-6.1); RDW 12.4 % (11.5-14.5); WBC 7.55 X1000 (4.8-10.8)
[2018-11-29 07:55] LABS: AGAP 9; ALB/GLOB RATIO 0.7; ALBUMIN 2.3 g/dL (3.5-5.0); ALKALINE PHOSPHATASE 168 U/L (32-122); BUN 10 mg/dL (8-22); CALCIUM 8.1 mg/dL (8.8-10.2); CHLORIDE 103 mmol/L (98-107); COSMO 269; CREATININE 0.7 mg/dL (0.7-1.2); ESTIMATED GFR > 60; GLUCOSE 91 mg/dL (70-104); GOT 45 U/L (10-34); GPT 20 U/L (10-44); MAGNESIUM 1.6 mg/dL (1.5-2.7); POTASSIUM 4.1 mmol/L (3.5-5.1); SODIUM 135 mmol/L (136-145); TCO2 23 mmol/L (25-35); TOTAL BILIRUBIN 1.28 mg/dL (0.20-1.00); TOTAL PROTEIN 5.7 g/dL (6.3-8.3)
[2018-11-29 08:18] LABS: ANISOCYTOSIS OCCASIONAL; EOS 3 % (1-10); LYMPHS 31 % (21-51); MONO 4 % (1-9); SEGS 62 % (42-75)
[2018-11-29] MEDS ORDERED: ALDACTONE PO SCH (09:00)
[2018-11-29] MEDS: VITAMIN B-1 PO SCH (10:42)
[2018-11-29] MEDS: FOLIC ACID PO SCH (10:42)
--- NOTE | 2018-11-29 12:36 | GASTROENTEROLOGY CONSULTATION ---
DATE: 11/29/2018 REASON FOR CONSULTATION: Ascites, decompensated alcoholic cirrhosis, lower extremity edema. HISTORY OF PRESENT ILLNESS: Mr. Rakesh Ng is a 43-year-old gentleman with past medical history of decompensated alcoholic cirrhosis complicated by ascites, peripheral edema, jaundice, who represents with progressive abdominal distention, weight gain, and lower extremity edema. The patient was recently hospitalized here for the same problem and was discharged on spironolactone after undergoing diagnostic and therapeutic paracenteses. He reports compliance with diuretics, although he does admit to adding salt to his food. He is primarily a vegetarian and occasionally eats canned foods. He says over the last 3 weeks, he has gained about 25 pounds and has noted more abdominal pressure and discomfort as well as lower extremity edema. He notes some associated nausea but no vomiting. No confusion, rectal bleeding, hematochezia, hematemesis. He complains of some mild constipation. Otherwise, his review of systems is negative. REVIEW OF SYSTEMS: As per HPI. A 12-point review of systems is otherwise negative. PAST MEDICAL HISTORY: Decompensated alcoholic cirrhosis, anemia, alcoholism, nicotine dependence, history of drug abuse, prior urine toxicology was positive for cannabis and opiates. MEDICATIONS: Folic acid, Protonix, Aldactone 25 mg once daily, thiamine. ALLERGIES: No known drug allergies. FAMILY HISTORY: Notable for alcoholism in mother. Paternal grandfather of alcohol cirrhosis. No GI malignancy. SOCIAL HISTORY: He reports longstanding alcoholism, drinking at least a 6-pack of beer per day and a small bottle of wine. Over the last year, he has noticed increased alcohol intake after his brother was murdered. He says he son with drinking alcohol and smoking marijuana. He lives with his mother. His last drink was 3 weeks ago when he was admitted here. PHYSICAL EXAMINATION: Vital signs: Temperature is 98.0, heart rate 107, respiratory rate 19, blood pressure 102/70, O2 saturation 100% on room air. General: The patient is awake, alert and oriented, no acute distress. HEENT: Sclerae anicteric. Moist mucous membranes. Neck: No JVD. No lymphadenopathy. Cardiac: Tachycardic, regular. No murmurs. Lungs: Clear to auscultation bilaterally. Abdomen: Distended. Bowel sounds present. Mild tenderness throughout. Bulging flanks. Ascites present. Lower extremity edema is 3+. Neurologic: Cranial nerves II through XII intact. No asterixis. Psychiatric: Normal affect. DIAGNOSTIC DATA: White count is 7.5, hemoglobin 11.8, MCV of 107, platelets 181,000. INR of 1.13. Sodium is 135, potassium 4.1, chloride 103, bicarb 23, BUN is 10, creatinine 0.7, glucose 191. Bilirubin is 1.28, AST is 45, ALT is 20, alkaline phosphatase 168, albumin 2.3. Total protein 5.7. UA is notable for trace ketones. ASSESSMENT AND PLAN: Mr. Rakesh Ng is a 43-year-old gentleman who represents with decompensated alcohol cirrhosis with worsening ascites, lower extremity edema and abdominal pain. He reports compliance with Aldactone and has notable ascites and peripheral edema on exam. He does admit to not maintaining a low salt diet. He has been abstinent from alcohol for the last 3 weeks. His LFTs show some improvement which would be consistent with his cessation of alcohol. He does need a diagnostic and therapeutic paracentesis. He did receive IV Lasix yesterday. No signs of infection at this point. I do recommend that we rule out SBP. 1. Decompensated cirrhosis, Child-Melara C. For his ascites, the patient is n.p.o. for diagnostic and therapeutic paracentesis. I recommend albumin administration for greater than 4 L of ascites removed, 8 g per liter removed approximately. Maintain a low sodium diet. Fluid restriction of 1.5 L daily. We will start Aldactone 100 mg and Lasix 40 mg p.o. We will stop IV Lasix for now. 2. Abnormal LFTs secondary to cirrhosis, have been downtrending. We will continue to monitor. 3. Alcohol abuse. Continue thiamine and folate. Encouraged continued alcohol abstinence. 4. Anemia, microcytic. We will check B12 and folate and replete as needed. No overt bleeding. The patient will need diagnostic EGD and colonoscopy as an outpatient. 5. Thrombocytopenia secondary to cirrhosis. 6. Severe protein calorie malnutrition secondary to alcoholism and cirrhosis. Encourage a high protein and calorie diet. We will follow with you. Please call with any questions or concerns. Thank you for this consult.
--- NOTE | 2018-11-29 14:11 | PROGRESS NOTE ---
DATE: 11/29/2018 SUBJECTIVE: This morning Mr. Ng refers to be doing fairly okay. According to him, the swelling in the lower extremity seems to be getting down, but he is still remarkably distended. OBJECTIVE: Vital signs: Blood pressure is 102/70, pulse is 107, respirations 19, temperature is 99.0 degrees. Mr. Ng is a 43-year-old gentleman. He is in bed. No distress. Mucosa is pink and moist. Anicteric. Acyanotic. Neck: Supple. Chest: Good air entry bilaterally. Few crackles posteriorly. Cardiovascular: Regular rate and rhythm. Abdomen: Soft, is distended. Positive for fluid shifting dullness and fluid thrill. Mild collateral circulation on the anterior abdominal wall. Extremities: About 3 to 4+ pedal edema bilateral. TECHNICAL ASST: Patient is awake, alert, oriented. There is no focal neurological deficit. LABORATORY DATA: WBC is 7.55, hemoglobin is 11.8, platelet count of 181,000. Chemistry is also reviewed. Sodium is 135, potassium is 4.1, chloride is 103, bicarb is 23. ASSESSMENT: 1. Massive ascites, likely due to underlying cirrhosis of the liver. 2. Cirrhosis of the liver due to previous alcohol abuse. The patient has a MELD score of 9 with low sodium and a Child Melara score of 9 [B]. 3. Fluid overload secondary to cirrhosis of the liver. The patient is pending paracentesis and will continue with the diuretic therapy. 4. History of alcohol abuse. Patient refers that for the past 3 weeks, he has not drank any alcohol. We will continue to encourage him to abstain. In general, Mr. Ng is an gentleman with known cirrhosis of the liver, has had multiple taps in the past, comes in because of massive symptomatic ascites. We are going to plan to tap him today. GI has also been consulted. We will continue with the current diuretic regimen. cc: MD SELMA Toscano
[2018-11-29 15:56] LABS: ALBUMIN BODY FLUID 0.4 g/dL; AMYLASE BODY FLUID 41 U/L
[2018-11-29 16:20] LABS: BODY FLUID SOURCE PERITONEAL FLUID; WBC BF 149 /cumm
[2018-11-29 16:39] LABS: MONOS 76 %; POLYS 24 %
--- NOTE | 2018-11-29 19:48 | OPERATIVE NOTE ---
PROCEDURE DATE: 11/29/2018 TIME OF PROCEDURE: Was 3:15 TYPE OF PROCEDURE: Abdominal paracenteses. INDICATION: Massive ascites. PROCEDURE NOTE: Mr. Ng is a 43-year-old male known to have alcohol-induced cirrhosis of the liver who has had abdominal paracentesis done on 2 different occasions. Presented this time because of symptomatic ascites which indication for paracentesis was met. The procedure was explained in details to him, complications including bleeding, infection, bowel injury were all discussed and he consented for the procedure. Ultrasound was used to localize the deepest pocket by the ultrasounds bow rehairer. Subsequently the abdomen was prepped. Time-out was made and the identified area was anesthetized with 1% lidocaine. Subsequently a little niche was done on the abdominal wall and the paracentesis needle was advanced under negative pressure until clear peritoneal fluid was aspirated. The trocar was advanced and the needle was removed. The trocar was subsequently attached to the draining system. An initial 30 mL of fluid was removed for analysis. Subsequently we were able to remove 3.8 L of clear yellowish peritoneal fluid and everything was sent to the lab for analysis. Mr. Ng tolerated the procedure without any complications. There was very minimal bleeding. After the procedure Mr. Ng referred to be feeling much relieved and less short of breath. We will follow up with the results and make further recommendations. cc: Quang Marcelino MD
[2018-11-29] MEDS ORDERED: NORCO-5 PO ONE ×2 (20:14→20:20)
[2018-11-30] MEDS: PROTONIX PO SCH (06:20)
[2018-11-30 07:47] LABS: BASO# 0.01 X1000 (0.0-0.2); BASO% 0.1 % (0.0-0.8); EOS# 0.27 X1000 (0.0-0.7); EOS% 3.8 % (0.0-10.0); HEMATOCRIT 36.6 % (42.0-52.0); HEMOGLOBIN 12.2 g/dL (14.0-18.0); IMM GRAN# 0.02 X1000 (0.0-0.04); IMM GRAN% 0.3 % (0.0-0.5); LYMPH# 1.78 X1000 (1.2-3.4); LYMPH% 24.9 % (20.5-51.1); MCHC 33.3 g/dL (33-37); MONO# 0.78 X1000 (0.11-0.59); MONO% 10.9 % (1.7-9.3); MPV 9.6 FL (7.4-10.4); NEUT# 4.28 X1000 (1.4-6.5); PLT 185 X1000 (130-400); RBC 3.39 XMIL (4.7-6.1); RDW 12.4 % (11.5-14.5); WBC 7.14 X1000 (4.8-10.8)
[2018-11-30 07:53] LABS: INR 1.12; PROTIME 15.3 Seconds (11.0-16.0)
[2018-11-30 07:58] LABS: AGAP 6; ALB/GLOB RATIO 0.6; ALKALINE PHOSPHATASE 161 U/L (32-122); BUN 8 mg/dL (8-22); CALCIUM 8.1 mg/dL (8.8-10.2); CHLORIDE 105 mmol/L (98-107); COSMO 276; CREATININE 0.7 mg/dL (0.7-1.2); ESTIMATED GFR > 60; GLUCOSE 96 mg/dL (70-104); GOT 39 U/L (10-34); GPT 18 U/L (10-44); MAGNESIUM 1.7 mg/dL (1.5-2.7); PHOSPHORUS 3.9 mg/dL (2.7-4.5); POTASSIUM 4.4 mmol/L (3.5-5.1); SODIUM 139 mmol/L (136-145); TCO2 28 mmol/L (25-35); TOTAL BILIRUBIN 1.31 mg/dL (0.20-1.00); TOTAL PROTEIN 5.6 g/dL (6.3-8.3)
[2018-11-30] MEDS ORDERED: LASIX PO SCH (09:00)
[2018-11-30] MEDS ORDERED: ALDACTONE PO SCH (09:00)
[2018-11-30] MEDS: VITAMIN B-1 PO SCH (11:23)
[2018-11-30] MEDS: FOLIC ACID PO SCH (11:23)
[2018-11-30 12:39] VITALS: BP 90/57
--- NOTE | 2018-11-30 14:24 | PROVIDER PROGRESS NOTE ---
Progress Note - - SUBJECTIVE: LVP yesterday without complication. No acute overnight events. Afebrile. No N/V/F, CP, SOB. Some ascites leakage at paracentesis site. No confusion or rectal bleeding. OBJECTIVE: Last Vital Signs Temp 98.0 F 11/30/18 07:36 Pulse 107 H 11/30/18 12:00 Resp 22 11/30/18 12:00 BP 90/57 11/30/18 12:00 Pulse Ox 100 11/30/18 12:00 Height 5 ft 8 in Weight 175 lb 6 oz GEN: awake, alert, NAD HEENT: anicteric, MMM CV: Suble, no JVD PULM: normal WOB, CTAB ABD: distended, NT, NABS, paracentesis site draining clear liquid fluid, + ascites EXT: 1-2+ LE edema NEURO: nonfocal; no asterixis LABS: 11/29/18 11/30/18 11/30/18 07:56 07:26 07:26 WBC 7.14 Hgb 12.2 L Plt Count 185 INR Sodium 139 Potassium 4.4 Chloride 105 Calcium 8.1 L Total Bilirubin 1.31 H AST 39 H ALT 18 Alkaline Phosphatase 161 H Total Protein 5.6 L Albumin 2.0 L Fluid WBC 149 Fluid Polynuclear WBCs 11/30/18 07:26 WBC Hgb Plt Count INR 1.12 Sodium Potassium Chloride Calcium Total Bilirubin AST ALT Alkaline Phosphatase Total Protein Albumin Fluid WBC Fluid Polynuclear WBCs A/P: Mr. Rakesh Ng is a 43-year-old gentleman with decompensated alcohol cirrhosis with worsening ascites, lower extremity edema and abdominal pain. He is s/p diagnostic and therapeutic LVP with removal of approx. 4L of ascites with improvement in abdominal pain and distension. No SBP. Starting oral diuretics today. #Decompensated ETOH cirrhosis - Cirrhosis: LFTs and INR improving - Ascites: s/p LVP 11/29: no SBP; starting aldactone 100 and lasix 40 PO daily; low Na diet, daily weights; recommend pressure dressing at paracentesis site - EV: no prior EGD; consider prior to discharge given lack of insurance coverage - HCC: US negative for hepatoma - PSE: none prior - OLT: improving MELD; recent alcohol use; abstinent since last admission - IMM: patient will likely need eventual HAV/HBV immunization #Abnormal LFTs; from above #ETOH abuse: abstinent; continue to encourage; continue thiamine, folate, recommend high protein calorie diet #Anemic: macrocytic: normal thiamine and folate; no overt bleeding; will monitor #Thrombocytopenia: 2/2 to cirrhosis #Severe protein calorie malnutrition: enteral nutrition as above #Uninsured: recommend social work assist with obtaining coverage Will follow with you. Please call with questions or concerns.
--- NOTE | 2018-11-30 21:05 | DISCHARGE SUMMARY ---
ADMISSION DATE: 11/28/2018 DISCHARGE DATE: 11/30/2018 DISPOSITION: Is home. FOLLOWUP: Will be Dr. Solano. CONSULTATION: GI was consulted, patient was seen by Dr. Solano. INVASIVE PROCEDURES: Ultrasound-guided paracentesis was done 3.8 L was removed. ADMISSION DIAGNOSIS: 1. Recurrent ascites. 2. Alcohol liver cirrhosis. 3. Microcytic anemia. 4. Alcohol dependence. DIAGNOSIS AT THE TIME OF DISCHARGE: 1. Is recurrent massive ascites. 2. Alcohol-induced cirrhosis of the liver complicated with ascites, portal hypertension and thrombocytopenia, MELD score 9 with Child Melara score of 9. 3. Fluid overload secondary to cirrhosis of the liver. 4. History of alcohol abuse, patient refers to have stop using alcohol the past 3 weeks. 5. Anemia with microcytosis B12 and folate normal. I think this is secondary to cirrhosis and previous alcohol abuse . DISCHARGE MEDICATIONS: 1. Pantoprazole 40 mg daily. 2. Spironolactone 100 mg daily. 3. Lasix 40 mg daily. 4. Thiamine 100 mg daily. 5. Folic acid 1 mg daily. PRESENTING COMPLAINT: Abdominal pain and fullness, lower extremity edema. HISTORY OF PRESENTING COMPLAINT: Mr. Ng is a 43-year-old male with a known history of cirrhosis of the liver who was discharged from this hospital just about a week ago after thoracentesis. Patient refers that he was not able to get his medications so he came back. Upon presentation he was found to have massive ascites and was admitted for therapeutic tap. HOSPITAL COURSE: Patient was admitted to the medical floor, consult was placed by GI, patient was seen by Dr. Solano. Ultrasound-guided bedside paracenteses was done 3.8 L of fluid was removed, fluid analysis showed that SAAG was more than 1.1, which was consistent for portal hypertension secondary to cirrhosis of the liver. Studies was negative for SBP. Mr. Ng felt a whole lot better after the paracenteses. This morning, he refers that he had he feels okay and he thinks that he can go home. There was concern that he is not insured and that he will need to have EGD done. However he cannot get it done until Saturday and Mr. Ng refers that he had some stuff to do at home and that he needs to go home, from medical standpoint I think he will be fine going home. He would need to follow up with GI for further management on outpatient basis. He has been given the case management number so that he can call for all the necessary assistance all there for him to get adequate medical care on outpatient base. This morning Mr. Ng vitals blood pressure is 93/62, pulse 90, respiration is 22, temperature is 98 degrees. Physical exam is unremarkable. Abdomen is not as distended as yesterday, is soft, nontender. There is still mild fluid shifting dullness. Lower extremity swelling has significantly improved. Mr. Ng is therefore being discharged in stable condition. He is supposed to follow up with Dr. Solano. TIME SPENT: 37 minutes. cc: Keven Solano MD
== END 2018-11-30 14:30 | disposition home or self-care (01) | DRG 432 ==
LOC: ED 13:28 → 3N 20:35
PROVIDERS: ATTEND Internal Medicine
CPT/HCPCS: 76857; 80053; 81001; 82042; 82150; 82607; 82746; 83690; 83735; 84100; 84157; 85025; 85610; 85730; 87070; 87075; 89051; 96365; 96366; 99284; A9270; J0696; J1940; J2405

== ENCOUNTER 2019-06-11 03:56 | Inpatient (IN) ==
[2019-06-11] MEDS ORDERED: NS 1,000 ML IV ONE (04:19)
[2019-06-11] MEDS ORDERED: ZOFRAN IV ONE (04:19)
[2019-06-11] MEDS ORDERED: MORPHINE IV ONE (04:19)
[2019-06-11 05:02] LABS: AGAP 18; ALB/GLOB RATIO 1.3; ALBUMIN 3.7 g/dL (3.5-5.0); ALKALINE PHOSPHATASE 289 U/L (32-122); BUN 27 mg/dL (8-22); CALCIUM 9.2 mg/dL (8.8-10.2); CHLORIDE 94 mmol/L (98-107); COSMO 285; CREATININE 0.8 mg/dL (0.7-1.2); ESTIMATED GFR > 60; GLUCOSE 179 mg/dL (70-104); GOT 283 U/L (10-34); GPT 93 U/L (10-44); LIPASE 22 U/L (13-60); POTASSIUM 4.2 mmol/L (3.5-5.1); SODIUM 138 mmol/L (136-145); TCO2 26 mmol/L (25-35); TOTAL BILIRUBIN 3.32 mg/dL (0.20-1.00); TOTAL PROTEIN 6.6 g/dL (6.3-8.3)
[2019-06-11 05:49] LABS: INR 1.43; PROTIME 17.7 Seconds (11.0-16.0); PTT 34.1 Seconds (22.3-41.8)
[2019-06-11 05:53] LABS: BASO# 0.01 X1000 (0.0-0.2); BASO% 0.2 % (0.0-0.8); HEMATOCRIT 28.2 % (42.0-52.0); HEMOGLOBIN 9.9 g/dL (14.0-18.0); LYMPH# 0.64 X1000 (1.2-3.4); MCH 36.4 PG (27-31); MCHC 35.1 g/dL (33-37); MCV 103.7 FL (81-99); MONO% 14.2 % (1.7-9.3); MPV 11.4 FL (7.4-10.4); NEUT# 3.59 X1000 (1.4-6.5); NEUT% 72.6 % (42.2-75.2); RBC 2.72 XMIL (4.7-6.1); RDW 12.2 % (11.5-14.5); WBC 4.94 X1000 (4.8-10.8)
--- NOTE | 2019-06-11 06:31 | PROVIDER DOCUMENTATION ---
HPI-General Adult - General Chief Complaint: N/V/D Stated Complaint: VOMITING, DIARRHEA Time Seen by Provider: 06/11/19 04:08 Source: patient Allergies/Adverse Reactions: Patient Allergies Allergy/AdvReac Type Severity Reaction Status Date / Time No Known Allergies Allergy Verified 11/16/18 09:53 Home Medications: Home Medication List Medication Instructions Recorded Confirmed Last Taken Type Pantoprazole [Protonix] 40 mg PO DAILY@0700 #90 tab 07/20/18 11/16/18 Unknown Rx Folic Acid 1 mg PO DAILY #30 tab 11/11/18 11/16/18 11/15/18 12:00 Rx Thiamine [Vitamin B-1] 100 mg PO DAILY #30 tab 11/11/18 11/16/18 11/15/18 12:00 Rx Nicotine Patch [Nicoderm Patch] 21 mg TD DAILY patch.[id number] 11/19/18 Unknown Rx Folic Acid 1 mg PO DAILY #120 tab 11/30/18 Unknown Rx Furosemide [Lasix] 40 mg PO DAILY #120 tab 11/30/18 Unknown Rx Spironolactone [Aldactone] 100 mg PO DAILY #120 tab 11/30/18 Unknown Rx Thiamine [Vitamin B-1] 100 mg PO DAILY #120 tab 11/30/18 Unknown Rx - History of Present Illness -Gen Adult Nature of Presenting Problems: Pt presents with n/v/d, started 36 hours ago, pt reports vomiting is black in color and stool has been black as well, pmh of alcoholism and cirrhosis, pt denies prior GI bleed, pt denies f/c, mccurdy, cp, sob, cough, ap, n/v/d. Pt is lying in bed in no acute distress. Location of Pain/Injury: reports: none Pain Radiation: reports: no radiation Quality of Pain: reports: none Severity: reports: moderate Onset/Duration: reports: 2 days ago Timing: reports: still present Context/Activities at Onset: reports: none Modifying Factors: improves with: nothing Associated Symptoms: reports: diarrhea, nausea, vomiting Similar Symptoms Previously?: No Recently seen or treated by another doctor?: No Review of Systems - Adult - REVIEW OF SYSTEMS - ADULT Constitutional: reports: no symptoms reported Eyes: reports: no symptoms reported Ears, Nose, Mouth & Throat: reports: no symptoms reported Cardiovascular: reports: no symptoms reported Respiratory: reports: no symptoms reported Gastrointestinal: reports: see HPI Genitourinary: reports: no symptoms reported Musculoskeletal: reports: no symptoms reported Integumentary: reports: no symptoms reported Neurological: reports: no symptoms reported Psychiatric: reports: no symptoms reported Endocrine: reports: no symptoms reported Hematologic/Lymphatic: reports: no symptoms reported Allergic/Immunologic: reports: no symptoms reported All Other Systems: Reviewed and Negative Past History - Adult - PAST MEDICAL HISTORY-ADULT Review of Records: reports: Old Records Reviewed, Nursing Assessment Review, Medications Reviewed, Social history reviewed & non-contributory. Major Childhood Illnesses: reports: denies history Cardiovascular: reports: denies history Respiratory: reports: denies history Gastrointestinal: reports: denies history, other (cirrhosis) Obstetrical/Gynecological: reports: denies history Genitourinary: reports: denies history Musculoskeletal: reports: denies history Neurological: reports: denies history Endocrine/Immune: reports: denies history Other Conditions: reports: denies history - PRIOR SURGERIES/PROCEDURES Surgical/Procedure History: reports: reviewed, not pertinent, orthopedic (extremity) (bilateral legs, knee), other (nose) - IMMUNIZATION STATUS Childhood Immunizations: See Nurse Assessment Flu Vaccine: See Nurse Assessment - FAMILY HISTORY Family History: reviewed, not pertinent Physical Exam-General - PHYSICAL EXAM-ADULT Initial Vital Signs Reviewed: Yes - CONSTITUTIONAL General Appearance: appears well - EYES Eyes: PERRL/EOMI - HEAD, EARS, NOSE, MOUTH & THROAT HENMT: normal ENT inspection - NECK Neck: normal inspection - RESPIRATORY Respiratory: lungs clear, no respiratory distress, no accessory muscle use - CARDIOVASCULAR Cardiovascular: regular rate, rhythm - GASTROINTESTINAL (ABDOMEN) Abdominal Exam: normal bowel sounds, non tender, soft - LYMPHATIC Lymphatic: no adenopathy - MUSCULOSKELETAL Back Exam: normal inspection Extremity: normal range of motion - SKIN Integumentary: normal color - NEUROLOGIC Neurologic: grossly normal - PSYCHIATRIC Psych/Mental Status: normal mood/affect Progress - PLAN OF CARE/RESULTS Progress/Plan/Lab Results: Vital Signs - 8 hr 06/11/19 04:00 06/11/19 04:37 06/11/19 04:38 Temperature 98.5 F Pulse Rate 150 H 141 H Respiratory Rate 20 15 Blood Pressure 130/91 113/89 O2 Sat by Pulse Oximetry 100 100 100 06/11/19 04:45 Temperature Pulse Rate 137 H Respiratory Rate 25 H Blood Pressure O2 Sat by Pulse Oximetry 99 Laboratory Results - last 24 hr 06/11/19 06/11/19 06/11/19 04:32 04:32 04:32 WBC Cancelled RBC Cancelled Hgb Cancelled Hct Cancelled MCV Cancelled MCH Cancelled MCHC Cancelled RDW Std Deviation Cancelled Plt Count Cancelled MPV Cancelled Immature Gran % (Auto) Cancelled Neut % (Auto) Cancelled Lymph % (Auto) Cancelled Trego % (Auto) Cancelled Eos % (Auto) Cancelled Baso % (Auto) Cancelled Immature Gran # (Auto) Cancelled Neut # (Auto) Cancelled Lymph # (Auto) Cancelled Trego # (Auto) Cancelled Eos # (Auto) Cancelled Baso # (Auto) Cancelled Corrected WBC (Man) Cancelled PT INR PTT (Actin FS) Sodium 138 Potassium 4.2 Chloride 94 L Carbon Dioxide 26 Anion Gap 18 BUN 27 H Creatinine 0.8 Estimated GFR/1.73 m2 > 60 BUN/Creatinine Ratio 34 Glucose 179 H Calculated Osmolality 285 Calcium 9.2 Total Bilirubin 3.32 H AST 283 H ALT 93 H Alkaline Phosphatase 289 H Total Protein 6.6 Albumin 3.7 Globulin 2.9 Albumin/Globulin Ratio 1.3 Lipase 22 Plasma Lactate 4.4 H* Blood Type Blood Type Confirm Antibody Screen 06/11/19 06/11/19 06/11/19 04:32 04:56 05:30 WBC RBC Hgb Hct MCV MCH MCHC RDW Std Deviation Plt Count MPV Immature Gran % (Auto) Neut % (Auto) Lymph % (Auto) Trego % (Auto) Eos % (Auto) Baso % (Auto) Immature Gran # (Auto) Neut # (Auto) Lymph # (Auto) Trego # (Auto) Eos # (Auto) Baso # (Auto) Corrected WBC (Man) PT 17.7 H INR 1.43 PTT (Actin FS) 34.1 Sodium Potassium Chloride Carbon Dioxide Anion Gap BUN Creatinine Estimated GFR/1.73 m2 BUN/Creatinine Ratio Glucose Calculated Osmolality Calcium Total Bilirubin AST ALT Alkaline Phosphatase Total Protein Albumin Globulin Albumin/Globulin Ratio Lipase Plasma Lactate Blood Type O NEGATIVE Blood Type Confirm O NEGATIVE Antibody Screen NEGATIVE 06/11/19 05:30 WBC 4.94 RBC 2.72 L Hgb 9.9 L Hct 28.2 L MCV 103.7 H MCH 36.4 H MCHC 35.1 RDW Std Deviation 12.2 Plt Count MPV 11.4 H Immature Gran % (Auto) 0.0 Neut % (Auto) 72.6 Lymph % (Auto) 13.0 L Trego % (Auto) 14.2 H Eos % (Auto) 0.0 Baso % (Auto) 0.2 Immature Gran # (Auto) 0.00 Neut # (Auto) 3.59 Lymph # (Auto) 0.64 L Trego # (Auto) 0.70 H Eos # (Auto) 0.00 Baso # (Auto) 0.01 Corrected WBC (Man) PT INR PTT (Actin FS) Sodium Potassium Chloride Carbon Dioxide Anion Gap BUN Creatinine Estimated GFR/1.73 m2 BUN/Creatinine Ratio Glucose Calculated Osmolality Calcium Total Bilirubin AST ALT Alkaline Phosphatase Total Protein Albumin Globulin Albumin/Globulin Ratio Lipase Plasma Lactate Blood Type Blood Type Confirm Antibody Screen Orders Category Date Time Status Transfuse .Give-Transfuse Care 06/11/19 05:53 Active CBC WITH ELECTRONIC DIFF [HEME] Stat Lab 06/11/19 05:30 Results COMPREHENSIVE METABOLIC PANEL [CHEM] Stat Lab 06/11/19 04:32 Completed LACTATE, PLASMA [CHEM] Stat Lab 06/11/19 04:32 Completed LACTATE, PLASMA [CHEM] Stat Lab 06/11/19 05:57 Uncollected LIPASE [CHEM] Stat Lab 06/11/19 04:32 Completed OCCULT BLOOD SCREENING [STOOL] Stat Lab 06/11/19 04:20 Uncollected PHERESIS PLATELETS [BBK] Stat Lab 06/11/19 04:32 Results PROTIME WITH INR [COAG] Stat Lab 06/11/19 05:30 Completed PTT [COAG] Stat Lab 06/11/19 05:30 Completed TYPE & SCREEN [BBK] Stat Lab 06/11/19 04:32 Results 0.9% Sodium Chloride Inj [Ns] 1,000 ml Med 06/11/19 04:19 Discontinued IV 999 mls/hr Morphine Med 06/11/19 04:19 Discontinued 4 mg IV NOW ONE Ondansetron [Zofran] Med 06/11/19 04:19 Discontinued 4 mg IV NOW ONE Result Diagrams: 06/11/19 05:30 06/11/19 04:32 Departure - Departure Date of Disposition Decision: 06/11/19 Time of Disposition Decision: 06:31 DIAGNOSIS: Upper GI bleed, Thrombocytopenia Disposition: ADMITTED INPATIENT 09 Certified Medical Emergency: Emergent Condition: Fair Referrals and Follow-Ups: None,PCP [Primary Care Provider] - - Critical Care Note This patient required my direct & personal management of CC.: No Attestation - Physician/ KEVEN Attestation Patient care was provided by Advanced Practice Provider:: No The physician spent face to face time with patient:: Yes Advanced Practice Provider documentation review:: Supervising physician onsite and consulted in the evaluation and care of this patient. The physician did have a face to face encounter with the patient.
[2019-06-11 06:40] LABS: LYMPHS 14 % (21-51); MONO 3 % (1-9); SEGS 83 % (42-75)
[2019-06-11 06:49] LABS: PLT 20 X1000 (130-400)
[2019-06-11] MEDS ORDERED: ZOFRAN IV PRN (09:16)
[2019-06-11] MEDS ORDERED: [UNRECOGNIZED DRUG - OTHER] IV ONE (09:18)
[2019-06-11] MEDS ORDERED: MAGNESIUM SULFATE IV ONE (09:18)
[2019-06-11] MEDS ORDERED: M V I IV ONE (09:18)
[2019-06-11] MEDS ORDERED: FOLIC ACID IV ONE (09:18)
[2019-06-11] MEDS ORDERED: THIAMINE IV ONE (09:18)
[2019-06-11] MEDS ORDERED: PROTONIX 80 MG in NS 80 ML IV ONE (09:27)
[2019-06-11] MEDS ORDERED: VITAMIN K SUBQ ONE (09:40)
[2019-06-11] MEDS: ATARAX PO SCH ×3 (12:00→22:01)
[2019-06-11] MEDS: LIBRIUM PO SCH ×3 (12:00→22:01)
[2019-06-11] MEDS: ROBAXIN PO SCH ×3 (12:02→22:01)
[2019-06-11] MEDS: ATIVAN IV PRN (12:31)
[2019-06-11] MEDS: PROTONIX 80 MG in NS 80 ML IV SCH ×2 (13:02→22:01)
--- NOTE | 2019-06-11 13:36 | HISTORY AND PHYSICAL ---
CHIEF COMPLAINT: Vomiting blood and diarrhea. HISTORY OF PRESENT ILLNESS: This is a 43-year-old gentleman with a history of alcohol abuse, alcoholic liver cirrhosis, and chronic thrombocytopenia, who presents to the emergency room complaining of 36 hours of black vomitus and stool. He denies any bloody vomitus or stool. He has no prior history of GI bleed. He does state that he has been on a alcohol binge drinking up to 6 pints of vodka a day with his last drink being about 12 to 15 hours ago. PAST MEDICAL HISTORY: Alcohol use and abuse. Alcoholic liver cirrhosis. Microcytic anemia. Recurrent ascites. Nicotine dependence. Cannabinoid use. PAST SURGICAL HISTORY: Three ultrasound-guided paracentesis. HOME MEDICATIONS: None. REVIEW OF SYSTEMS: Discussed with the patient with pertinent positives stated in the HPI. He denies any syncope, dizziness, chest pain, palpitations, any shortness of breath, cough, fever, chills, recent weight loss or weight gain, any diarrhea, bloody vomitus or stools, any hematuria, dysuria, frequency, or urgency. PHYSICAL EXAMINATION: GENERAL: This is a 43-year-old gentleman who was sitting up on the stretcher in the emergency room in mild distress. EYES: Pupils are equal, round, and react to light. EOMs are intact. Mucous membranes are moist. NECK: Supple with trachea midline. CARDIOVASCULAR: Regular rate and rhythm. He is tachycardic. S1 and S2 appreciated. He has no lower extremity edema. Calves are nontender bilaterally with peripheral pulses palpable x4 extremities. PULMONARY: Breath sounds are clear with no increased work of breathing noted. Chest rises and falls symmetric with respiration. GASTROINTESTINAL: Abdomen is soft, nontender, and nondistended. Bowel sounds in all 4 quadrants. NEUROLOGIC: He is alert, awake and oriented x3. SKIN: Warm and dry. LABORATORY: WBC is 4.9 with hemoglobin 9.9, hematocrit 28.2, and platelets of 20,000. INR is 1.43. Sodium 138, potassium 4.2, BUN 27, creatinine 0.8 with a glucose of 179. Total bilirubin is 3.32 with AST 283, ALT 93, and alkaline phosphatase 289. He does have a lactate of 2.7. ASSESSMENT AND PLAN: 1. Gastrointestinal bleed. The patient will be NPO, guaiac vomitus and stools. consult Dr. Olson. I have already spoken with Dr. Olson about this patient. Carafate, and Protonix drip. Keep him NPO 2. Alcoholic liver cirrhosis. trend his labs daily. continue to encourage with alcohol cessation. Aldactone 25mg po daily. 3. Elevated INR. Vitamin K 10 mg. Monitor daily INR. 4. Macrocytic anemia. 5. Alcohol withdrawal in a patient with chronic alcohol dependence. Librium taper. Give a banana bag. Hydroxyzine and Robaxin for anxiety and muscle spasms. Ativan IV q.4 hours p.r.n. 6. Thrombocytopenia. Platelets are 20 today. He received platelets in the emergency room. We will recheck a CBC at 2:00 in the afternoon. If they are at 50 or less, we will re transfuse. 7. Severe protein calorie malnutrition secondary to alcoholism and cirrhosis. encourage a high-protein calorie diet. Consult the dietitian. hold off of course on any anticoagulation as the patient has thrombocytopenia as well as a GI bleed, and elevated INR. We are unsure of any history of varices. Further treatments pending hospital course. Plan was discussed with Dr. Marcelino. Dictated by ALICIA Monae for Quang Marcelino MD cc: ALICIA Monae MD [facility]
[2019-06-11] MEDS: CARAFATE LIQUID PO SCH ×2 (14:44→22:01)
[2019-06-11 15:53] LABS: HEMATOCRIT 21.3 % (42.0-52.0); HEMOGLOBIN 7.1 g/dL (14.0-18.0); MCHC 33.3 g/dL (33-37); MCV 110.9 FL (81-99); MPV 10.4 FL (7.4-10.4); RBC 1.92 XMIL (4.7-6.1); RDW 12.7 % (11.5-14.5); WBC 6.49 X1000 (4.8-10.8)
[2019-06-11 18:51] LABS: HEMATOCRIT 21.3 % (42.0-52.0); HEMOGLOBIN 7.1 g/dL (14.0-18.0)
--- NOTE | 2019-06-11 20:40 | GASTROENTEROLOGY CONSULTATION ---
DATE: 06/21/2019 REQUESTING PHYSICIAN: Dr. Marcelino. REASON FOR CONSULTATION: Coffee-ground emesis, alcoholism. HISTORY OF PRESENT ILLNESS: Mr. Ng is a 43-year-old male with a history of decompensated alcoholic cirrhosis complicated with ascites, peripheral edema, jaundice in the past, struggling with alcoholism for many decades. According to the patient, he drinks about 4 to 8 beers a day. His last drink was the day before yesterday. The patient started having acute onset of nausea and vomiting yesterday. He threw up 30 times at home and it made him really sick. He started vomiting coffee-grounds emesis and he came to the ER. He was admitted in the hospital. He was noted to have anemia with a hemoglobin of 9.9 and platelet count of 20,000. He was also noted to have elevated liver enzymes and mild jaundice. Gastroenterology was consulted for further management. PAST MEDICAL HISTORY: 1. Alcoholic cirrhosis. 2. Alcoholism. 3. History of previous ascites. 4. Chronic anemia. 5. Nicotine dependence. 6. History of drug abuse. Prior urine toxicology was positive for cannabis and opioids. PAST SURGICAL HISTORY: He had paracentesis done in November 2018. ALLERGIES: No known drug allergies. HOME MEDICATIONS: None. FAMILY HISTORY: Notable for alcoholism in mother. Paternal grandfather of alcoholic cirrhosis. No history of GI malignancy in the family. SOCIAL HISTORY: He reports long-standing alcoholism, drinking about 4 to 8 beers per day and small bottle of wine every day. His last drink was 2 days ago. He lives with his mother and her . He also smokes a pack a day. He denies any history of current drug abuse. MEDICATIONS IN HOSPITAL INCLUDE: Carafate 1 g q.6 hours, Librium 50 mg p.o. q.6 hours, dicyclomine 20 mg q.6 hours as needed, Atarax 50 mg IV q.6 hours, Ativan 1 mg IV q.4 hours as needed, Robaxin 750 mg p.o. q.6 hours, Zofran 4 mg IV q.4 hours as needed, Protonix 40 mg IV b.i.d. He is currently on Protonix drip in fact, Morphine, given 1 dose of vitamin K. Currently NPO. REVIEW OF SYSTEMS: Denies any current fevers, rigors, or chills, chest pain, shortness of breath, dyspnea at rest. Does complain of nausea, but he has not thrown up today. He has been having some dark stools and last bowel movement was yesterday. He denies any major arthritis. He denies any neurologic complaints. He does feel anxious. I think he is going through alcohol withdrawal. PHYSICAL EXAMINATION: Temperature 97.8 degrees, pulse of 118, respiratory rate 22, blood pressure 107/96, saturating 98% on room air. Body weight of 130 pounds, BMI 19.8 kg/m2. General: Moderately built, moderately nourished, lying in bed, in no acute distress. He is appears to be a little anxious. HEENT: Positive pallor. Positive icterus. Pupils equal, react to light. Neck: Supple. Abdomen: Soft, nontender. Mild discomfort in epigastrium. No rebound or guarding. Extremities: No cyanosis or clubbing. Neurologic: Alert, awake, oriented x3. No asterixis at the moment. He has tremors in his hands. LABORATORY: Hemoglobin and hematocrit is 9.9 and 28.2, white count of 4.94, platelet count of 20,000. INR 1.43, PT of 17.7, PTT of 34.1. Sodium of 138, potassium 4.2, chloride of 94, bicarbonate of 26, anion gap of 18, BUN of 27, creatinine of 0.8, glucose of 179, calcium 9.2. Total bilirubin is 3.32, AST 283, ALT 93, alkaline phosphatase 289, total protein 6.6, albumin of 3.7, lipase of 22, lactate of 2.7. Stool occult blood was positive. IMAGIN. Done in the past in November 2018, abdominal ultrasound showed ascites, gallbladder thickening, hepatic steatosis, and [id number] splenomegaly. 2. He had a CT scan done at the same time, which showed worsened ascites, possible hepatic necroses, and worsened mesenteric adenopathy. IMPRESSION AND PLAN: 1. Alcoholism, last drink 2 days ago. He has a history of heavy alcohol abuse. Watch for alcohol withdrawal and the patient is being managed by the primary team. He is on Librium and Ativan as needed. 2. Thrombocytopenia. He has been transfused 2 units of platelets. 3. Anemia. Continue to watch for now and transfuse as needed to keep the hemoglobin goal between 7 to 8 g/dL. 4. Coagulopathy. He has already received 1 dose of vitamin K. We will give vitamin K for the 2 more days. 5. Elevated liver enzymes and jaundice, likely secondary to be decompensated alcoholic liver cirrhosis. We will follow the daily liver enzymes and blood work. 6. The patient was counseled to quit alcohol completely. The patient was also counseled to quit smoking completely. 7. The patient will need EGD. We will schedule for tomorrow with Dr. Solano. We will continue Protonix drip for now. 8. Above plans for the patient and all questions answered. I also spoke with the primary care team and all questions answered. Please call us with any further questions. cc: MD Quang Pimentel MD MTDD
--- NOTE | 2019-06-11 22:36 | HISTORY AND PHYSICAL ---
ADDENDUM: HISTORY OF PRESENT ILLNESS: I have seen and examined Mr. Ng today. Mr. Ng is a 43- year-old, male, who is known to have alcohol-induced cirrhosis of the liver complicated with portal hypertension, thrombocytopenia, who continues to binge on alcohol. He came to the emergency department today because he has been vomiting. He has been vomiting coffee-ground emesis and also having dark stool. On presentation, his blood count was 9.9. A couple of hours later, a repeat shows a blood count of 7.1. PHYSICAL EXAMINATION: CURRENT VITALS BLOOD: Blood pressure is 104/58, pulse of 117, respiration is 14, temperature 99.0 degrees. GENERAL: Mr. Ng is a 43-year-old, male. He is in bed, in no distress. HEENT: Mucosa is pink and moist, anicteric, acyanotic. NECK: Supple. CHEST: Clear. ABDOMEN: Soft. EXTREMITIES: No pedal edema. CENTRAL NERVOUS SYSTEM: Patient is kind of drowsy, but easily arousable. LABORATORY: His lab work has all been reviewed. His current laboratory data has also been reviewed. His platelet count is 93,000. This is after 2 FFP have been transfused. MsAlphonse perez. ASSESSMENT/PLAN: 1. Gastrointestinal bleed, presumably upper. Gastroenterology has been consulted and we are pending Gastroenterology evaluation. The patient has been started on PPI and we will also start him on antibiotics for the gastrointestinal bleed. 2. History of cirrhosis of the liver complicated with thrombocytopenia. 3. Severe thrombocytopenia with platelet count of 20,000 on admission. Patient has been given 2 units of PRBCs. PT is minimally elevated. The patient has also been given vitamin K. 4. Alcohol-induced hepatitis. 5. Lactic acidosis due to hypoperfusion from dehydration. For today, Mr. Ng is admitted to the [facility]. We are going to continue with the Protonix drip. We will trend his hemoglobin and transfuse accordingly once the hemoglobin is less than 7. We will also observe and look out for any alcohol withdrawal symptoms. Please refer to the details of the H&P dictated by the [employer] in the chart. cc: MD SELMA Toscano
[2019-06-11] MEDS: NICODERM PATCH TD PRN (23:09)
[2019-06-12] MEDS: CARAFATE LIQUID PO SCH ×4 (02:15→21:40)
[2019-06-12] MEDS: ROBAXIN PO SCH ×3 (03:29→16:38)
[2019-06-12] MEDS: ATARAX PO SCH ×5 (03:29→21:40)
[2019-06-12] MEDS: LIBRIUM PO SCH ×3 (03:29→18:43)
[2019-06-12] MEDS: PROTONIX 80 MG in NS 80 ML IV SCH (05:45)
[2019-06-12 07:53] LABS: HEMATOCRIT 20.9 % (42.0-52.0); HEMOGLOBIN 6.9 g/dL (14.0-18.0); MCH 36.7 PG (27-31); MCV 111.2 FL (81-99); MPV 10.6 FL (7.4-10.4); RBC 1.88 XMIL (4.7-6.1); RDW 12.6 % (11.5-14.5); WBC 5.24 X1000 (4.8-10.8)
[2019-06-12] MEDS: ATIVAN IV PRN (07:54)
[2019-06-12 08:11] LABS: AGAP 8; ALB/GLOB RATIO 1.2; ALBUMIN 3.1 g/dL (3.5-5.0); ALKALINE PHOSPHATASE 197 U/L (32-122); BUN 25 mg/dL (8-22); CALCIUM 8.4 mg/dL (8.8-10.2); CHLORIDE 107 mmol/L (98-107); COSMO 287; CREATININE 0.7 mg/dL (0.7-1.2); ESTIMATED GFR > 60; GLUCOSE 87 mg/dL (70-104); GOT 132 U/L (10-34); GPT 51 U/L (10-44); MAGNESIUM 1.5 mg/dL (1.5-2.7); POTASSIUM 3.8 mmol/L (3.5-5.1); SODIUM 142 mmol/L (136-145); TCO2 27 mmol/L (25-35); TOTAL BILIRUBIN 2.05 mg/dL (0.20-1.00); TOTAL PROTEIN 5.7 g/dL (6.3-8.3)
[2019-06-12] MEDS ORDERED: VITAMIN K 10 MG in NS 50 ML IV SCH (09:00)
[2019-06-12] MEDS ORDERED: NS 500 ML IV ONE (09:02)
[2019-06-12] MEDS ORDERED: DIPRIVAN 1% ONE (09:38)
[2019-06-12] MEDS ORDERED: XYLOCAINE-MPF 2% ONE (09:39)
--- NOTE | 2019-06-12 10:24 | ENDOSCOPY OPERATIVE NOTE ---
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 PROCEDURE PERFORMED: EGD, diagnostic MEDICATIONS: Per Anesthesia TOPICAL ANESTHETIC: none CONSENT: The patient understands the risks and benefits of the procedure and understands that these r isks include, but are not limited to: sedation, allergic reaction, infection, perforation and/or bleeding. Alternative means of evaluation and treatment include, among others: physical exam, x-rays, and/or surgical intervention. The patient elects to proceed with this endoscopic procedure. HISORY AND PHYSICAL: 06/12/2019 function. Hand hygiene and appropriate measures for infection prevention was taken. After the risks, benefits and alternatives of the procedure were thoroughly explained, Informed consent was verified, confirmed and timeout was successfully executed by the treatment team. The patient was anesthetized with topical anesthesia and the [id number] ([id number]) endoscope was introduced through the mouth and advanced to the second portion of the duoden um. Retroflexion was performed in the stomach and revealed no abnormalities. The gastroscope was then slowly withdraw n and removed. ESOPHAGUS: Esophagitis was found in the upper third of the esophagus. Esophagitis was LA Class C: Mu cosal breaks continuous between > 2 mucosal folds, but involving less than 75% of the esophageal circumference. Normal mid to distal esophagus. No esophageal varices. STOMACH: Mild portal hypertensive gastropathy was found in the gastric body. DUODENUM: Mild duodenal inflammation was found in the duodenal bulb. The duodenal mucosa showed no abnormalities. SPECIMENS REMOVED: No ADVERSE EVENTS: There were no complications. POSTOPERATIVE DIAGNOSIS: 1. Esophagitis in the upper third of the esophagus 2. Normal mid to distal esophagus. No esophageal varices 3. Portal hypertensive gastropathy was found in the gastric body 4. Duodenal inflammation was found in the duodenal bulb 5. The duodenal mucosa showed no abnormalities RECOMMENDATIONS: Transition PPI from IV to PO BID and continue for 8 weeks Avoid NSAIDs and aspirin REPEAT EXAM: Return in 1 year for EGD. Varices screening Keven Solano MD eSigned: Keven Solano MD 06/12/2019 10:23 AM cc: PATIENT NAME: Rakesh Ng MR#: [id number]
[2019-06-12] MEDS ORDERED: NEO-SYNEPHRINE ONE (10:45)
[2019-06-12] MEDS: PROTONIX IV SCH ×2 (12:13→21:40)
[2019-06-12] MEDS: LEVAQUIN 250 MG/D5W 250 MG/50 ML IVPB IV SCH (12:41)
--- NOTE | 2019-06-12 14:36 | PROGRESS NOTE ---
DATE: 06/12/2019 SUBJECTIVE: This morning Mr. Ng refers to be doing fairly okay. No new complaints. He was waiting for EGD to be done. OBJECTIVE: Vital Signs: Blood pressure was 94/65 with a MAP of 77, pulse of 92, respirations 19, temperature 98.8 degrees. General: Mr. Ng is a 43-year-old gentleman. He was in bed, no distress. Mucosa is pink and moist. Anicteric, acyanotic. Neck: Supple. Chest: Clear to auscultation. Cardiovascular: Regular rate and rhythm. Abdomen: Soft, non tender. Extremities: No pedal edema. Central Nervous System: Patient is awake, alert, and oriented. LABORATORY DATA: WBC is 5.24, hemoglobin is 6.9, platelet count of 88,000. Chemistry is also reviewed, which is completely normal. AST and ALT are trending down. Albumin is 3.1. INR was 1.43 yesterday. ASSESSMENT AND PLAN: 1. Gastrointestinal bleed. The patient is pending an upper endoscopy today. 2. History of cirrhosis of the liver complicated with portal hypertension and thrombocytopenia. 3. Alcohol-induced hepatitis. 4. History of alcohol use and abuse. I will continue watching out for any withdrawal symptoms. 5. Anemia secondary to gastrointestinal bleed. The patient's hemoglobin is 6.9 today. We will group and crossmatch him and give him 1 unit of blood. cc: Quang Marcelino MD MTDD
[2019-06-12] MEDS: NICODERM PATCH TD PRN (23:38)
[2019-06-13] MEDS: BENTYL PO PRN ×2 (00:30→10:06)
[2019-06-13] MEDS: LIBRIUM PO SCH ×2 (01:33→10:06)
[2019-06-13] MEDS: CARAFATE LIQUID PO SCH ×3 (01:34→13:20)
[2019-06-13] MEDS ORDERED: MORPHINE IV ONE (01:52)
[2019-06-13] MEDS: ATARAX PO SCH (03:50)
[2019-06-13 05:53] LABS: HEMATOCRIT 23.3 % (42.0-52.0); HEMOGLOBIN 7.8 g/dL (14.0-18.0); MCH 35.1 PG (27-31); MCHC 33.5 g/dL (33-37); MPV 10.6 FL (7.4-10.4); RBC 2.22 XMIL (4.7-6.1); RDW 15.1 % (11.5-14.5); WBC 3.66 X1000 (4.8-10.8)
[2019-06-13 06:11] LABS: AGAP 14; ALBUMIN 3.1 g/dL (3.5-5.0); BUN 18 mg/dL (8-22); CALCIUM 8.1 mg/dL (8.8-10.2); CHLORIDE 106 mmol/L (98-107); COSMO 284; CREATININE 0.6 mg/dL (0.7-1.2); ESTIMATED GFR > 60; GLUCOSE 89 mg/dL (70-104); POTASSIUM 3.6 mmol/L (3.5-5.1); SODIUM 142 mmol/L (136-145); TCO2 22 mmol/L (25-35)
[2019-06-13 06:19] LABS: ALB/GLOB RATIO 1.5; ALBUMIN 3.2 g/dL (3.5-5.0); DIRECT BILIRUBIN 1.1 mg/dL (0.00-0.20); TOTAL BILIRUBIN 1.82 mg/dL (0.20-1.00); TOTAL PROTEIN 5.4 g/dL (6.3-8.3)
[2019-06-13] MEDS: NICODERM PATCH TD PRN (10:07)
[2019-06-13] MEDS: LEVAQUIN 250 MG/D5W 250 MG/50 ML IVPB IV SCH (10:07)
--- NOTE | 2019-06-13 10:14 | PROGRESS NOTE ---
DATE: 06/13/2019 SUBJECTIVE: This morning Mr. Ng refers to be doing a lot better. He denies any more vomiting. He underwent EGD yesterday. OBJECTIVELY: His vitals, blood pressure is 114/73, pulse of 88, respiration is 19, temperature is 98.4 degrees.General: Mr. Ng is a 43-year-old gentleman. He is in bed in no distress. Mucosa is pink and moist. Anicteric. Acyanotic. Neck: Supple. Chest: Clear to auscultation. No crepitations. No rhonchi. Cardiovascular: Regular rate and rhythm. Abdomen: Soft, nontender. Bowel sounds present. Mild shifting dullness. Extremities: No pedal edema. LEAF CONDITIONER: Patient is awake, alert, and oriented. There is no focal neurological deficit. LABORATORY DATA: WBC is 3.66, hemoglobin is 7.8, platelet count of 79,000. Chemistry is also reviewed, all within normal ranges except phosphorus is slightly reduced. Total bilirubin is trending down. AST and ALT are all trending down. The EGD report suggests there was esophagitis in the upper 3rd of the esophagus. There was also portal hypertensive gastropathy and there was some duodenitis. ASSESSMENT: 1. Gastrointestinal bleed on presentation, needing 1 packed red blood cell transfusion. Patient is status post EGD. 2. Cirrhosis of the liver complicated with portal hypertension, thrombocytopenia and portal hypertensive gastropathy noted. 3. Alcohol-induced hepatitis. Liver enzymes are trending down. 4. History of alcohol use and abuse. Patient has been counseled. 5. Anemia secondary to gastrointestinal bleed. The patient is status post 1 PRBC transfusion. Hemoglobin is up to 7.8. 6. Pancytopenia, secondary to alcohol abuse. PLAN: So in general, I think Mr. Ng is doing a lot better. He is not showing any more overt signs of bleeding. We are starting him on a GI soft diet today. He will continue on his PPI, which we will switch to p.o. Carafate and a 5 day course of antibiotics. I think Mr. Ng can be discharged later today if it is okay with GI and if he is able to tolerate his diet. cc: Quang Marcelino MD
[2019-06-13 11:27] VITALS: BP 106/90
[2019-06-13] MEDS: ATIVAN IV PRN (11:29)
[2019-06-13] MEDS ORDERED: PRILOSEC PO SCH (21:00)
--- NOTE | 2019-06-13 22:22 | PROVIDER PROGRESS NOTE ---
Progress Note S: No acute overnight events. Afebrile. Patient denies complaints. O: Last Vital Signs Temp 98.0 F 06/13/19 11:26 Pulse 100 H 06/13/19 11:26 Resp 18 06/13/19 11:26 BP 106/90 06/13/19 11:26 Pulse Ox 100 06/13/19 11:26 Height 5 ft 8 in Weight 142 lb 11.2 oz GEN: awake, alert, NAD, eating breakfast HEENT: anicteric, MMM NECK: supple, no JVD PULM: CTAB, no wheezing ABD: soft NT/ND, NABS, no ascites EXT: no cce NEURO: ambulatory, no asterixis LABS: 06/13/19 06/13/19 06/13/19 05:02 05:02 05:02 WBC 3.66 L Hgb 7.8 L Plt Count 79 L Sodium 142 Potassium 3.6 Chloride 106 Carbon Dioxide 22 L BUN 18 Creatinine 0.6 L Total Bilirubin 1.82 H Direct Bilirubin 1.10 H AST 116 H ALT 48 H Alkaline Phosphatase 203 H Total Protein 5.4 L Albumin 3.1 L EGD 06/12 ESOPHAGUS: Esophagitis was found in the upper third of the esophagus. Esophagitis was LA Class C: Mucosal breaks continuous between > 2 mucosal folds, but involving less than 75% of the esophageal circumference. Normal mid to distal esophagus. No esophageal varices. STOMACH: Mild portal hypertensive gastropathy was found in the gastric body. DUODENUM: Mild duodenal inflammation was found in the duodenal bulb. The duodenal mucosa showed no abnormalities. A/P: Mr. Rakesh Ng is a 43-year-old gentleman with decompensated alcohol cirrhosis with ascites who presents with N/V and coffee ground emesis found to have worsening anemia, thrombocytopenia, and mild alcoholic hepatitis. He is not steroid candidate given GI bleed. EGD yesterday showed LA grade C esophagitis in the upper esophagus, which likely represents source of bleeding. He also had mild duodenitis and PHG. No esophageal or gastric varices # Hematemesis: 2/2 to esophagitis: continue PPI BID for 2-3 months; avoid NSAIDS # PHG and duodenitis: PPI as above # Alcoholic hepatitis: improving # Decompensated ETOH cirrhosis - Ascites: no ascites on exam; low Na diet - EV: repeat EGD in 1 year; no varices - HCC: US every q6mo - PSE: none - OLT: recent alcohol use - IMM: patient will likely need eventual HAV/HBV immunization #Anemia: macrocytic: normal thiamine and folate; stable #Thrombocytopenia: 2/2 to cirrhosis #Severe protein calorie malnutrition: recommend high protein calorie diet Patient discharged today.
--- NOTE | 2019-06-14 22:21 | DISCHARGE SUMMARY ---
ADMISSION DATE: 06/11/2019 DISCHARGE DATE: 06/13/2019 DISPOSITION: Home. FOLLOWUP: The patient will follow up with Russ. CONSULTATION DURING THIS ADMISSION: GI was consulted. Patient was seen by Dr. Rahman. Followed up by Dr. Solano. INVASIVE PROCEDURE DONE DURING THIS ADMISSION: An EGD was done which showed portal hypertensive gastropathy, esophagitis in the upper third. There were no varices, and there was duodenal inflammation at the bulb. ADMISSION DIAGNOSES: 1. Gastrointestinal bleed. 2. Alcohol liver cirrhosis. 3. Elevated INR. 4. Alcohol withdrawal. 5. Thrombocytopenia. DIAGNOSES AT THE TIME OF DISCHARGE: 1. Gastrointestinal bleed on presentation needing 1 pack of red blood cells transfusion. 2. Anemia secondary to gastrointestinal bleed. 3. Alcohol cirrhosis of the liver complicated with portal hypertension, thrombocytopenia, and portal hypertensive gastropathy. 4. Alcohol-induced hepatitis. 5. Alcohol use and abuse. 6. Pancytopenia secondary to alcohol abuse and cirrhosis. PRESENTING COMPLAINT: Vomiting blood and diarrhea. HISTORY OF PRESENT COMPLAINT/HOSPITAL COURSE: Mr. Ng is a 43-year-old male who is known to have alcohol cirrhosis and alcohol use and abuse, which he continues to use at home. He came in because he was vomiting blood. He was evaluated and was found to have an initial hemoglobin and hematocrit of 9.9, which dropped to 6.9, and he had to be transfused. He underwent EGD with Dr. Solano. Please find the details of the result in the chart. Briefly, this seems to be portal hypertensive gastropathy and some duodenitis and esophagitis. Mr. Ng was started on PPI and antibiotic for GI bleed in cirrhotic patient. Mr. Ng unfortunately signed AMA on 06/13/2019. We thought he was fairly stable. He would have been discharged any way. We were just waiting for GI to evaluate and make sure he was okay from their standpoint and also give the full the follow-up plan. Unfortunately, he could not wait, and he left AMA. cc: Quang Marcelino MD
== END 2019-06-13 13:31 | disposition left against medical advice (07) | DRG 391 ==
LOC: SUPCPDRO → ED 03:56 → EDIPHOLD 09:43 → 2N 12:01
PROVIDERS: ATTEND Internal Medicine

== ENCOUNTER 2020-01-07 17:14 | Inpatient (IN) ==
[2020-01-07] MEDS ORDERED: SODIUM CHLORIDE 0.9% INJ ONE ×2 (17:21→20:59)
[2020-01-07] MEDS ORDERED: PEPCID IV ONE (17:21)
[2020-01-07] MEDS ORDERED: ZOFRAN IV ONE (17:21)
--- NOTE | 2020-01-07 17:52 | Diag Imaging Result Doc PS360 ---
EXAM: CHEST-1 VIEW HISTORY: SOB TECHNIQUE: Single view COMPARISON: None. FINDINGS: The lungs are well expanded. The heart is not enlarged. The vessels are not distended. There are no infiltrates. Questionable tiny right effusion. IMPRESSION: No pneumonia Electronically signed by Julian Galeano 01/07/2020 5:49 PM
[2020-01-07 17:59] LABS: BASO# 0.04 X1000 (0.0-0.2); BASO% 0.2 % (0.0-0.8); EOS# 0.45 X1000 (0.0-0.7); EOS% 2.8 % (0.0-10.0); HEMATOCRIT 16.7 % (42.0-52.0); IMM GRAN# 0.17 X1000 (0.0-0.04); LYMPH# 2.24 X1000 (1.2-3.4); LYMPH% 13.7 % (20.5-51.1); MCH 33.5 PG (27-31); MCHC 32.3 g/dL (33-37); MCV 103.7 FL (81-99); MONO# 1.76 X1000 (0.11-0.59); MONO% 10.8 % (1.7-9.3); MPV 11.2 FL (7.4-10.4); NEUT# 11.68 X1000 (1.4-6.5); NEUT% 71.5 % (42.2-75.2); PLT 154 X1000 (130-400); RBC 1.61 XMIL (4.7-6.1); WBC 16.34 X1000 (4.8-10.8)
[2020-01-07 18:01] LABS: HEMOGLOBIN 5.4 g/dL (14.0-18.0)
[2020-01-07] MEDS ORDERED: NS 500 ML IV ONE (18:03)
--- NOTE | 2020-01-07 18:04 | Diag Imaging Result Doc PS360 ---
EXAM: CT ABDOMEN/PELVIS W/O CONTRAST HISTORY: FLANK PAIN TECHNIQUE: CT abdomen and pelvis without oral or intravenous contrast. COMPARISON: 11/08/2018 FINDINGS: The liver is extremely fatty. There is a large amount of ascites. No splenomegaly. No inflammation about the pancreas. Normal adrenal glands. No renal stones or hydronephrosis. No aortic aneurysm. Mild atherosclerosis. The gallbladder is contracted. No calcified stones. There are gastric varices. No bowel obstruction. There are scattered colonic diverticula. Normal appendix. The urinary bladder is poorly seen. Normal prostate. IMPRESSION: Severely cirrhotic liver with fatty infiltration and ascites This exam was performed using automated exposure control, adjustment of mA or kV according to patient size, and/or use of iterative reconstruction technique. Electronically signed by Julian Galeano 01/07/2020 6:02 PM
[2020-01-07 18:05] LABS: INR 1.67; PTT 46.1 Seconds (22.3-41.8)
[2020-01-07] MEDS ORDERED: NS 250 ML IV ONE (18:12)
[2020-01-07] MEDS ORDERED: MORPHINE IV ONE (18:12)
[2020-01-07 18:20] LABS: ANISOCYTOSIS 2+; HYPOCHROM 1+; LYMPHS 10 % (21-51); MONO 3 % (1-9); SEGS 87 % (42-75)
[2020-01-07 18:36] LABS: ALB/GLOB RATIO 0.6; ALBUMIN 1.9 g/dL (3.5-5.0); CALCIUM 7.2 mg/dL (8.8-10.2); CREATININE 4.8 mg/dL (0.7-1.2); MAGNESIUM 3.1 mg/dL (1.5-2.7); POTASSIUM 3.4 mmol/L (3.5-5.1); TOTAL BILIRUBIN 10.83 mg/dL (0.20-1.00); TOTAL PROTEIN 5.3 g/dL (6.3-8.3)
--- NOTE | 2020-01-07 19:11 | PROVIDER DOCUMENTATION ---
This chart was entered by Kayla Olea Scribe, acting as scribe for Logan Novoa MD. HPI-Abdominal Pain/GI Problem - General Stated Complaint: ABD PAIN Time Seen by Provider: 01/07/20 17:16 Source: patient Allergies/Adverse Reactions: Patient Allergies Allergy/AdvReac Type Severity Reaction Status Date / Time No Known Allergies Allergy Verified 01/07/20 17:55 Home Medications: Home Medication List Medication Instructions Recorded Confirmed Last Taken Type NK [No Home Medications] 06/11/19 01/07/20 Unknown History - History of Present Illness-ABD Nature of Presenting Problems: pt is a 44 yom c/o general abd pain and distention for over 1 wk and rectal bleed for 4-5 days. pt has hx of cirrhosis. pt paracentesis from abd 2x by Dr. Marcelino. pt has jaundiced skin. pt sts last alcoholic beverage was few days ago. Abdominal Pain Onset Location: reports: generalized abdomen Pain Radiation: reports: no radiation Severity in ED: reports: mild Onset/Duration: reports: last week (abd distended), other (rectal bleed for 4-5 days) Timing: reports: still present Activities at Onset: reports: none Modifying Factors: improves with: nothing Associated Symptoms: denies: diarrhea, nausea, vomiting Review of Systems - Adult - REVIEW OF SYSTEMS - ADULT Constitutional: reports: no symptoms reported. denies: fever, fatique, night sweats Eyes: reports: no symptoms reported Ears, Nose, Mouth & Throat: reports: no symptoms reported Cardiovascular: reports: no symptoms reported Respiratory: reports: no symptoms reported Gastrointestinal: reports: see HPI, abdominal pain (distended), rectal bleeding. denies: hematemesis, diarrhea, vomiting Genitourinary: reports: no symptoms reported Musculoskeletal: reports: no symptoms reported Integumentary: reports: no symptoms reported Neurological: reports: no symptoms reported Psychiatric: reports: no symptoms reported Endocrine: reports: no symptoms reported Hematologic/Lymphatic: reports: no symptoms reported Allergic/Immunologic: reports: no symptoms reported All Other Systems: Reviewed and Negative Past History - Adult - PAST MEDICAL HISTORY-ADULT Review of Records: reports: Nursing Assessment Review, Medications Reviewed, Social history reviewed & non-contributory. Major Childhood Illnesses: reports: denies history Cardiovascular: reports: denies history Respiratory: reports: denies history Gastrointestinal: reports: liver disease, other (cirrhosis) Obstetrical/Gynecological: reports: denies history Genitourinary: reports: denies history Musculoskeletal: reports: denies history Neurological: reports: denies history Endocrine/Immune: reports: denies history Other Conditions: reports: denies history - PRIOR SURGERIES/PROCEDURES Surgical/Procedure History: reports: reviewed, not pertinent, orthopedic (extremity) (bilateral legs, knee), other (nose) - IMMUNIZATION STATUS Childhood Immunizations: See Nurse Assessment Flu Vaccine: See Nurse Assessment - FAMILY HISTORY Family History: reviewed, not pertinent - SOCIAL HISTORY Smoking: cigarettes, greater than 1 pack/day Provider spent 3-5 mins advising pt. on dangers of tobacco.: Discussed manners to quit use, and f/u contacts for add'l counseling. Substance Use: alcohol Alcohol Use Frequency: every day Physical Exam-General - PHYSICAL EXAM-ADULT Initial Vital Signs Reviewed: Yes - CONSTITUTIONAL General Appearance: alert, no apparent distress. negative: lethargic, slow to respond, obtunded - EYES Eyes: PERRL/EOMI, scleral icterus. negative: pink conjunctivae, meningismus, sunken eyes - HEAD, EARS, NOSE, MOUTH & THROAT HENMT: normocephalic/atraumatic, moist mucous membranes, normal ENT inspection, pharynx normal - NECK Neck: non-tender, full range of motion, supple, normal inspection - RESPIRATORY Respiratory: chest non-tender, lungs clear, normal breath sounds - CARDIOVASCULAR Cardiovascular: normal peripheral pulses, regular rate, rhythm - GASTROINTESTINAL (ABDOMEN) Abdominal Exam: normal bowel sounds, non tender, no organomegaly, no pulsatile mass, distended, other (ascites). negative: soft, guarding, rigid - GENITOURINARY Rectal Exam: normal exam, normal rectal tone. negative: black stool, blood streaked stool, decreased tone - MUSCULOSKELETAL Back Exam: normal inspection Extremity: normal range of motion, non-tender, normal inspection - SKIN Integumentary: warm/dry, jaundice. negative: normal color, swelling, tenderness - NEUROLOGIC Neurologic: grossly normal, no motor/sensory deficits - PSYCHIATRIC Psych/Mental Status: normal mood/affect, normal thought content, normal thought process, oriented x 3 Progress - PLAN OF CARE/RESULTS Result Diagrams: 01/07/20 17:45 01/07/20 17:45 - EKG 1 Time of EKG reading by physician:: 17:38 EKG Read and Signed by:: Logan Novoa EKG Interpretation (*Must complete 3 of following elements*): Normal Rate: 95 Rhythm: NSR [place]: normal QRS: normal NV Interval: normal ST Wave: normal - XRAY 1 XRAY Study: Chest Impression: See EMR Report (EXAM: CHEST-1 VIEW HISTORY: SOB TECHNIQUE: Single view COMPARISON: None. FINDINGS: The lungs are well expanded. The heart is not enlarged. The vessels are not distended. There are no infiltrates. Questionable tiny right effusion. IMPRESSION: No pneumonia) Comparison with other Films: no prior study - CONSULTS/PCP/HOSPITALIST Notification #1 *Consult/PCP/Hospitalist*: [place] Time Discussed: 19:06 Consult Disposition: Admit Departure - Departure Date of Disposition Decision: 01/07/20 Time of Disposition Decision: 18:53 DIAGNOSIS: Anemia, Cirrhosis of liver, Ascites, Acute renal failure (ARF) Disposition: ADMITTED INPATIENT 09 Certified Medical Emergency: Emergent Condition: Serious Referrals and Follow-Ups: None,PCP [Primary Care Provider] - - Critical Care Note This patient required my direct & personal management of CC.: Yes Total Time (mins): 45 Critical Care Statement: This patient required my direct personal management to treat or rule out processes, the absence of which, could potentiallly result in sudden, clinically significant life or limb threatening deterioration. Attestation - Physician/ KEVEN Attestation Patient care was provided by Advanced Practice Provider:: No The physician spent face to face time with patient:: Yes Advanced Practice Provider documentation review:: Supervising physician onsite and consulted in the evaluation and care of this patient. The physician did have a face to face encounter with the patient. This chart was documented by the indicated scribe, (Kayla Olea Scribe) and accurately reflects the services I performed and decisions made by me, Logan Novoa MD, as attested by the provider's signature.
--- NOTE | 2020-01-07 20:06 | EKG Report ---
Test Performed on : 01/07/2020 5:38:43 PM Test Reason : SOB Blood Pressure : / mmHG Vent. Rate : 095 BPM Atrial Rate : 095 BPM P-R Int : 132 ms QRS Dur : 080 ms QT Int : 428 ms P-R-T Axes : 061 054 057 degrees QTc Int : 537 ms Normal sinus rhythm. Normal ECG When compared with ECG of 08-NOV-2018 13:08, Nonspecific T wave abnormality no longer evident in Inferior leads Nonspecific T wave abnormality, improved in Lateral leads Unconfirmed Result
[2020-01-07] MEDS ORDERED: ZOFRAN IV PRN (20:59)
[2020-01-07] MEDS ORDERED: ROCEPHIN 1 GM in NS 50 ML IV ONE (20:59)
--- NOTE | 2020-01-07 21:00 | HISTORY AND PHYSICAL ---
REASON FOR ADMISSION: A 4-day history of intermittent melanotic stools, vomiting, and abdominal pain. HISTORY OF PRESENT ILLNESS: Mr. Rakesh Ng is a 44-year-old man with a past medical history ascites as a result of alcoholic cirrhosis, last seen here in June of 2019 for upper GI bleed, which is nonvariceal in nature. He reports that he has been drinking up until the last 5 days when he noticed that he was having diffuse abdominal pain and noticed that his stools has changed color to a dark blackish color. He says he has only vomited once, coffee grounds with a few specks of bright red blood. He says over the last couple of days his breathing has gotten worse because he can no longer take a deep breath because of his abdominal swelling, which has progressively gotten worse. He denies any swelling elsewhere or bleeding from any other orifice. He reports that his urine output has declined over the last couple of days. He denies any diffuse itching. He denies any cardiorespiratory complaints other than mild exertional dyspnea and some mild orthopnea. No palpitations. He does get a little lightheaded when he stands up. He says that he has been experiencing diffuse abdominal pain, which can range anywhere from sharp in character to crampy, it is intermittent, worse when he tries to initiate movement, and he gets partial relief when he keeps still. No polydipsia. No focal neurological complaints. REVIEW OF SYSTEMS: Twelve system review was done. Positive findings per HPI. ALLERGIES: No allergies. HOME MEDICATIONS: None. SOCIAL HISTORY: He smokes 1 pack a day. He smokes marijuana occasionally and says he drinks about a 5th of alcohol over 3 days. His last drink was 4 days ago. He says he plans to quit. FAMILY HISTORY: His mother had alcohol liver disease. PAST SURGICAL HISTORY: He has had plastic surgery and facial reconstruction, knee surgery. LABORATORY DATA: White count is 16,000 H H is 5 and 16, MCV is 103, platelet count is 164,000, with 71% neutrophils. Sodium is 127, potassium is 3.4, BUN is 77, creatinine is 4.8, this ch an increase from a BUN of 18 and creatinine of 0.6 since June. Other Laboratories: Magnesium is 3.1, total bilirubin is 10.8, alkaline phosphatase is 215, AST is 141, ALT is 44. PTT is 20, INR is 1.6. IMAGING: CT of the abdomen and pelvis, severe cirrhotic liver with fatty infiltration and ascites noted. CT chest film showed no pneumonia. Alcohol level was undetected. PHYSICAL EXAMINATION: VITAL SIGNS: Blood pressure is 103/59, heart rate is 94, respiratory rate is 20, temperature is 97.6 degrees, O2 saturation is 96% on room air. GENERAL: A chronically ill middle-aged white man who is profoundly icteric and pale. He is alert and oriented to person, place and time with normal mood and affect. HEENT: Head is normocephalic and atraumatic. Eyes: PHILLIP, EOMI. ENT and oropharynx exam is grossly normal. Some cyanosis. NECK: Supple with noticeable JVD. No bruit or thyromegaly. CHEST: Shows a few bibasilar crepitations. CARDIOVASCULAR: First and second heart sounds are heard. No gallops, murmurs or rubs. Regular. ABDOMEN: Distended, tense with diffuse tenderness, but no rebound. I could appreciate any organomegaly due to the degree of distention. Bowel sounds are hypoactive. RECTAL: Deferred. EXTREMITIES: The patient has decreased distal pulse volumes, regular, symmetrical. No edema, clubbing or peripheral cyanosis. NEUROLOGICAL: No gross focal deficits. No asterixis. SKIN: Icteric with slight decreased turgor. MUSCULOSKELETAL: The patient has mild to moderately diffuse sarcopenia. ASSESSMENT: 1. Acute kidney injury ? hepatorenal syndrome. 2. Upper GI bleed, could be from erosive gastritis. Cannot rule out early onset varices. 3. Alcoholic hepatitis. 4. Hypotonic hypervolemic hyponatremia secondary to cirrhosis. 5. Alcoholic cirrhosis. 6. Macrocytic anemia secondary to chronic liver disease. 7. Leukocytosis ? etiology SBP. PLAN: The patient will be admitted and primary goal is to resuscitate the patient. He will be admitted to the ICU. Fortunately the patient is not showing any signs of hemorrhagic shock or cardiovascular instability. We will transfuse 2 units of packed red blood cells. Consult GI to see the patient. We will also consult Nephrology to see the patient. Urine indices are pending. Abdominal sonogram was ordered to evaluate for renal obstruction, which seems likely. I suspect this may just be a result of I suspect acute kidney injury, it could be secondary to depleted intravascular volume from GI blood losses. We will start the patient on IV antibiotics for presumptive SBP and also because of the benefits of antibiotics in patients who may have variceal bleeding. We will set up the patient for abdominal diagnostic/therapeutic paracentesis. The patient's MELD score is 36, which suggests a 52% mortality in the next 3 months. A discussion regarding hospice may need to be entertained in this patient prior to his discharge. Depending on if he does have hepatorenal syndrome type 1 his prognosis will be further compromised. We will consider starting the patient on a vasopressin drip if renal function does not improve. Follow up of paracenteses to evaluate for spontaneous SBP as this in addition to GI bleed could have also triggered hepatorenal syndrome in this patient. TIME SPENT: Critical care time for this patient is 36 minutes. cc: Rayshawn Vicente MD
[2020-01-07] MEDS ORDERED: NICODERM PATCH TD ONE (21:47)
[2020-01-07] MEDS: DILAUDID IV PRN (23:49)
[2020-01-07] MEDS: PEPCID IV SCH (23:49)
[2020-01-07] MEDS: THIAMINE 100 MG in NS 50 ML IV SCH (23:50)
[2020-01-08 00:19] LABS: URINE SOURCE CLEAN CATCH
[2020-01-08 00:33] LABS: BILIRUBIN URINE MODERATE (NEGATIVE); BLOOD URINE NEGATIVE (NEGATIVE); COLOR YELLOW; GLUCOSE URINE TRACE mg/dL (NEGATIVE); KETONE URINE TRACE mg/dL (NEGATIVE); LEUKOCYTES URINE NEGATIVE (NEGATIVE); NITRITE URINE NEGATIVE (NEGATIVE); PH URINE 5.5; PROTEIN URINE 30 mg/dL (NEGATIVE); SP GRAVITY URINE 1.025; TURBIDITY URINE HAZY (CLEAR); UROBILINOGEN URINE 4 mg/dL (NORMAL)
[2020-01-08 00:37] LABS: UR CREAT RANDOM 266.8 mg/dL (14-26)
[2020-01-08 00:44] LABS: UR EPITHELIAL CELLS <10 /HPF (<10); URINE BACTERIA NEGATIVE /HPF; URINE WBC <10 /HPF (<10)
[2020-01-08 00:57] LABS: UR AMPHETAMINES QUAL PRESUMPTIVE POSITIVE (NONE DETECT); UR BARBITUATES QUAL NONE DETECTED (NONE DETECT); UR BENZODIAZEPIN QUAL NONE DETECTED (NONE DETECT); UR CANNABINOIDS QUAL PRESUMPTIVE POSITIVE (NONE DETECT); UR COCAINE QUAL PRESUMPTIVE POSITIVE (NONE DETECT); UR METHADONE QUAL NONE DETECTED (NONE DETECT); UR OPIATES QUAL PRESUMPTIVE POSITIVE (NONE DETECT); UR OXYCODONE QUAL NONE DETECTED (NONE DETECT); UR PCP QUAL NONE DETECTED (NONE DETECT)
[2020-01-08 01:23] LABS: URINE CASTS NONE SEEN; URINE CRYSTALS NONE SEEN; URINE SMALL ROUND CELLS NONE SEEN; URINE YEAST PRESENT
[2020-01-08] MEDS ORDERED: ROCEPHIN ONE (01:40)
[2020-01-08] MEDS ORDERED: NS 50 ML ONE (01:41)
[2020-01-08] MEDS ORDERED: NS 250 ML ONE (02:21)
[2020-01-08 06:27] LABS: BASO# 0.08 X1000 (0.0-0.2); BASO% 0.5 % (0.0-0.8); EOS# 0.65 X1000 (0.0-0.7); EOS% 3.8 % (0.0-10.0); HEMATOCRIT 24.7 % (42.0-52.0); HEMOGLOBIN 8.5 g/dL (14.0-18.0); IMM GRAN# 0.17 X1000 (0.0-0.04); LYMPH# 2.63 X1000 (1.2-3.4); LYMPH% 15.4 % (20.5-51.1); MCH 32.6 PG (27-31); MCHC 34.4 g/dL (33-37); MCV 94.6 FL (81-99); MONO# 1.88 X1000 (0.11-0.59); MPV 11.4 FL (7.4-10.4); NEUT# 11.62 X1000 (1.4-6.5); NEUT% 68.3 % (42.2-75.2); PLT 121 X1000 (130-400); RBC 2.61 XMIL (4.7-6.1); RDW 20.9 % (11.5-14.5); WBC 17.03 X1000 (4.8-10.8)
[2020-01-08 07:04] LABS: ALB/GLOB RATIO 0.6; CALCIUM 7.5 mg/dL (8.8-10.2); CREATININE 5.1 mg/dL (0.7-1.2); POTASSIUM 3.8 mmol/L (3.5-5.1); TOTAL BILIRUBIN 11.35 mg/dL (0.20-1.00); TOTAL PROTEIN 5.6 g/dL (6.3-8.3)
--- NOTE | 2020-01-08 09:26 | Diag Imaging Result Doc PS360 ---
EXAM: US ABDOMEN-COMPLETE HISTORY: Cirrhosis DIMITRY TECHNIQUE: Abdominal ultrasound COMPARISON: None. FINDINGS: Normal pancreatic body. Portions of the head and tail are obscured. There is fatty infiltration of the liver. It is difficult to penetrate the liver. The liver is heterogeneous. Moderate to large amount of ascites. There is thickening of the gallbladder wall. This is usually accompanied with ascites. No gallstones. Common bile that measures 4 mm. Mild increased renal echotexture. No hydronephrosis. The spleen measures over 14 cm in length. IMPRESSION: 1.Fatty infiltration of the liver 2.Ascites 3.Increased renal echotexture likely due to medical renal disease 4.Mild splenomegaly Electronically signed by Julian Galeano 01/08/2020 9:23 AM
--- NOTE | 2020-01-08 09:31 | Diag Imaging Result Doc PS360 ---
US ABD PARACENTESIS W S/I - 01/08/2020 INDICATION: diagnostic and therapeutic paracentesis COMPARISON: CT from 01/07/2020 FINDINGS: The risks and benefits of the procedure were discussed with the patient. All questions were answered. Written and verbal consent was obtained. Ultrasound scanning demonstrated ascites. Overlying skin was prepped and draped in sterile fashion. Anesthesia was achieved with injection of 10 cc 1% lidocaine. The paracentesis catheter was advanced until the return of ascites fluid. 4.1 L was aspirated. The catheter was withdrawn intact. The patient reported no symptoms from the procedure. IMPRESSION: Successful and uncomplicated ultrasound-guided paracentesis. Electronically signed by Chris Rivas 01/08/2020 9:29 AM
[2020-01-08] MEDS: DILAUDID IV PRN (10:04)
[2020-01-08] MEDS: ZINC SULFATE PO SCH (10:21)
[2020-01-08] MEDS: PROTONIX IV SCH ×2 (10:24→22:24)
[2020-01-08] MEDS ORDERED: XYLOCAINE-MPF 2% ONE (10:49)
[2020-01-08] MEDS ORDERED: DIPRIVAN 1% ONE (10:50)
[2020-01-08] MEDS: PEPCID IV SCH (11:10)
--- NOTE | 2020-01-08 11:21 | GASTROENTEROLOGY CONSULTATION ---
DATE: 01/08/2020 REASON FOR CONSULTATION: Upper GI bleed. HISTORY OF PRESENT ILLNESS: Mr. Ng is a 44-year-old male with a history of alcoholic cirrhosis and ascites in the past. The patient has been complaining that he has been having dark tarry stools since 5 days onwards. He had nausea and vomiting once, and noticed that his emesis were dark coffee-ground. The patient mentioned that he has lost his appetite. The patient's hemoglobin on admission was 5.4 and 16.7. Today it is 8.5 and 24.7. The patient has so far received 2 units of blood. GI saw him last on 06/11/2019, and we did an EGD on 06/12/2019. The patient did have esophagitis in the upper third of the esophagus. Mid to distal esophagus was normal. No esophageal varices. He had portal hypertensive gastropathy found in the gastric body. Duodenal inflammation was found in the duodenal bulb. The duodenal mucosa showed no abnormalities. The patient is currently complaining of abdominal pain. He said when he came to the hospital, it was 7/10. Currently, the pain has subsided. He described it as a dull aching pain. He did have an ultrasound-guided paracentesis done and they had taken out 4.1 L of fluid. The fluid has been sent for further analysis to check for SBP. The patient's abdominal and pelvis CT on admission showed severely cirrhotic liver with fatty infiltration and ascites. The patient's chest x-ray showed no pneumonia. Ultrasound of the abdomen showed fatty infiltration of the liver, ascites, increased renal echotexture likely due to medical renal disease, and mild splenomegaly. Currently, the patient denies any nausea or vomiting. His abdominal pain is 3/10 and described it is a dull aching pain. The patient has denied any flu- like symptoms but does mention that he has some lightheadedness when he tries to get up from a sleeping position. The patient is an alcoholic and has vodka on a daily basis but currently he states that he has not had it for the last 7 days. He is a smoker and smokes 1 pack of cigarettes a day. He also smokes marijuana occasionally. PAST MEDICAL HISTORY: Alcoholic cirrhosis, alcoholism, history of ascites, chronic anemia, nicotine dependency, drug abuse. PAST SURGICAL HISTORY: He had a facial reconstruction done and plastic surgery, knee surgery, paracentesis in 2019. SOCIAL HISTORY: The patient is single. Smokes 1 pack of cigarettes a day. Smokes marijuana occasionally. Drinks vodka on a regular basis but currently has not had it for the last 7 days. FAMILY HISTORY: Significant for alcoholic liver disease. ALLERGIES: No known drug allergies. HOME MEDICATIONS: Home medications are to be reconciled. REVIEW OF SYSTEMS: As per HPI. Otherwise, 12 point review of system is negative. PHYSICAL EXAMINATION: Vital signs: Temperature 97.5 degrees, pulse 85, respirations 20, blood pressure 104/55, oxygen saturation 100% on room air. The patient's weight is 150 pounds, BMI is 22.8 kg/m2. General: He is alert, oriented x3. No acute distress. Answering questions appropriately. HEENT: Pale conjunctivae. Mild icterus. PERRL. Neck: Supple. Lungs: Clear to auscultation. Cardiovascular: Regular rate and rhythm. Abdomen: Mildly distended, tender on the right side. The patient has got a sterile dressing where the paracentesis was done. Active bowel sounds heard in all 4 quadrants. Extremities: No clubbing, no cyanosis, no edema. Pedal pulses 2+ present bilaterally. Neurologic: Alert, oriented x3. Nonfocal. Cranial nerves 2-12 grossly intact. LABORATORY DATA: WBCs of 17.03, RBCs 2.61, hemoglobin is 8.5, hematocrit is 24.7, platelet count is 121,000. PT is 20.0, INR is 1.67, sodium 130, potassium 3.8, chloride 95, carbon dioxide 22, anion gap 13, BUN 81, creatinine is 5.1, glucose 107, calcium 7.5. Magnesium 3.0. Total bilirubin is 11.35, AST is 155, ALT is 48, alkaline phosphatase is 224, albumin is 2.0. Urinalysis yesterday showed protein of 30, trace of glucose, trace of ketones, moderate bilirubin. Toxicology report has shown presumptive positive for urine opiates, presumptive positive for urine amphetamines, presumptive positive for cocaine and presumptive positive for cannabinoids. IMAGING: Abdomen and pelvis CT has shown severely cirrhotic liver with fatty infiltration and ascites. Chest x-ray has shown no pneumonia. Abdominal ultrasound showed fatty infiltration of the liver, ascites, increased renal echotexture likely due to the medical renal disease, and mild splenomegaly. Ultrasound-guided paracentesis was done and approximately 4.1 L of ascitic fluid was aspirated. IMPRESSION AND PLAN: 1. Upper GI bleed. 2. Acute blood loss anemia. 3. Elevated liver function tests. 4. Hyponatremia. 5. Hypoalbuminemia. 6. Alcoholic cirrhosis. 7. Ascites. 8. H/o alcoholism. 9. H/o nicotine dependency. 10. H/o drug abuse. PLAN: Mr. Ng is a 44-year-old male with a history of alcoholism and alcoholic cirrhosis. GI has been consulted for his upper GI bleed. The patient's hemoglobin and hematocrit today is 8.5 and 24.7. He has so far received 2 units of blood. We plan to do an EGD today to find out the cause of his bleeding. The patient did have an ultrasound-guided paracentesis done and approximately 4.1 L of fluid has been aspirated. The fluid is sent for further analysis to rule out spontaneous bacterial peritonitis. The patient currently is receiving PPIs twice a day. He is on antibiotic Rocephin 1 g at 100 mL/hour. We have discussed the risks, benefits, and alternatives of the procedure to the patient. Further plan of care will be based on the EGD findings. This plan was discussed with Dr. Solano. Thank you for your consult. Please call us for any further questions or concerns. Dictated by ALICIA Hair for Keven Solano MD [facility]
--- NOTE | 2020-01-08 11:49 | ENDOSCOPY OPERATIVE NOTE ---
[facility] ENDOSCOPY OPERATIVE NOTE , EGD PROCEDURE REPORT EXAM DATE: 01/08/2020 PATIENT NAME: Rakesh Ng MR#: [id number] BIRTHDATE: 1975 ATTENDING: Keven Solano MD STATUS: inpatient HEALTH PROMOTION OFFICER: INDICATIONS: The patient is a 44 yr old male here for an EGD due to acute post hemorrhagic anemia, m coral, and decompensated ETOH cirrhosis with ascites and jaundice. Patient taking copious NSAIDs.. PROCEDURE PERFORMED: EGD, diagnostic MEDICATIONS: Per Anesthesia ESTIMATED BLOOD LOSS: None CONSENT: The patient understands the risks and benefits of the procedure and understands that these r isks include, but are not limited to: sedation, allergic reaction, infection, perforation and/or bleeding. Alternative means of evaluation and treatment include, among others: physical exam, x-rays, and/or surgical intervention. The patient elects to proceed with this endoscopic procedure. DESCRIPTION OF PROCEDURE: During pre-op preparation period all mechanical and medical equipment was c hecked for proper function. Hand hygiene and appropriate measures for infection prevention was taken. After the risks, benefits and alternatives of the procedure were thoroughly explained, Informed consent was verified, confirmed and timeout was successfully executed by the treatment team. The patient was anesthetized with topical anesthesia and the [id number] ([id number]) endoscope was introduced through the mouth and advanced to the second portion of the duoden um. Retroflexion was performed in the stomach and revealed varices without bleeing. The gastroscope was then slowly w ithdrawn and removed. The patient's toleration of the procedure was excellent. ESOPHAGUS: The z-line was noted at. The z-line appeared irregular. There was a single small (Grade 1) varix in the lower third of the esophagus. STOMACH: There were small (GOV2) gastric varices in the gastric fundus without stigmata of recent ble eding. Multiple non-bleeding cratered and clean-based ulcers ranging between 5-9mm in size were found in the gastric antrum. Mild portal hypertensive gastropathy was found. There was old blood clots found in the stomach. DUODENUM: Three ranging between 5-9mm in size non-bleeding, cratered, and clean-based ulcers were fou nd in the duodenal bulb and 2nd part duodenum. ADVERSE EVENTS: There were no complications. IMPRESSIONS: ESOPHAGUS: The z-line was noted at. The z-line appeared irregular. There was a single small (Grade 1) varix in the lower third of the esophagus. STOMACH: There were small (GOV2) gastric varices in the gastric fundus without stigmata of recent ble eding. Multiple non-bleeding cratered and clean-based ulcers ranging between 5-9mm in size were found in the gastric antrum. Mild portal hypertensive gastropathy was found. DUODENUM: Three ranging between 5-9mm in size non-bleeding, cratered, and clean-based ulcers were fou nd in the duodenal bulb and 2nd part duodenum. RECOMMENDATIONS: Continue PPI IV BID Clear liquid diet as tolerated Avoid NSAIDs and blood thinners SCDs for DVT prophylaxis Trend H/H daily, transfuse for goal hgb 7-8 Start nadolol 10mg PO once daily for primary prophylaxis Continue CTX for 5 days for SBP prophylaxis Will follow with you. Please call with questions REPEAT EXAM: Return in 3 months for EGD. Keven Solano MD eSigned: Keven Solano MD 01/08/2020 11:48 AM CC: CPT CODES: 78232 Upper gastrointestinal endoscopy including esophagus, stomach, and either the du odenum and/or jejunum as appropriate; diagnostic, with or without collection of specimen(s) by brushing or washing (separate procedure) ICD CODES: 285.1 Acute posthemorrhagic anemia 578.1 Blood in stool The ICD and CPT codes recommended by this software are interpretations from the data that the [facility] staff has captured with the software. The verification of the translation of this report to the ICD and CPT co sophy and modifiers is the sole responsibility of the health care institution and practicing physician where this report was generated. [employer] will not be held responsible for the validity of the ICD and CPT codes i ncluded on this report. [facility] assumes no liability for data contained or not contained herein. CPT is a registered tra [employer]ark of the [employer]. PATIENT NAME: Rakesh Ng MR#: [id number]
[2020-01-08 12:37] LABS: ALBUMIN BODY FLUID 0.2 g/dL; AMYLASE BODY FLUID 33 U/L; TOTAL PROT BODY FLUID 0.4 g/dL
[2020-01-08] MEDS ORDERED: ALBUMIN 25% IV ONE (12:58)
[2020-01-08 13:09] LABS: BODY FLUID SOURCE PERITONEAL FLUID; WBC BF 67 /cumm
[2020-01-08 13:10] LABS: MONOS 74 %; POLYS 26 %
[2020-01-08] MEDS: NS 1,000 ML IV SCH (13:18)
--- NOTE | 2020-01-08 13:46 | PROGRESS NOTE ---
DATE: 01/08/2020 SUBJECTIVE: Seen and examined Mr. Ng today. He refers to be doing well. Denies any new complaints. He has undergone both therapeutic paracenteses today where 4.1, ascitic fluid was aspirated. He also underwent EGD. He remains in the ICU, but in a very stable condition. OBJECTIVE: Current vitals, blood pressure is 106/57, pulse of 78, respirations 15, and temperature 97.8 degrees. The patient is saturating 100% on room air.General: Mr. Ng is a 44-year-old gentleman. He is in bed in no distress. HEENT: Mucosa is pink and moist. Anicteric. Acyanotic. Neck: Supple. Chest: Good air entry bilaterally. No crepitations. No rhonchi. Cardiovascular: Regular rate and rhythm. GI: Abdomen is soft. It is still slightly distended but nontender. Bowel sounds present. There is some dullness to percussion generalized, but no hepatosplenomegaly. Extremities: No pedal edema. MFT: Patient is awake, alert, and oriented. There is no focal deficit. LABORATORY DATA: WBC of 17.03, hemoglobin of 8.5, and platelet count of 121,000. Chemistry is also reviewed. His creatinine of 5.1, and sodium of 130. The patient's urine sodium was 11. UDS positive for opioids, amphetamines, cannabinoids and cocaine. ASSESSMENT: 1. Acute kidney injury presumably multifactorial including volume depletion, hepatorenal and medication induced. It appears that Mr. Ng was on spironolactone and furosemide at some point. For now, a renal ultrasound shows increased renal echotexture likely due to medical renal disease. Probably, he has acute on chronic renal disease. For now, we are going to get him IV fluids, albumin infusion, and get Nephrology to evaluate him. 2. Symptomatic ascites. The patient is status post paracenteses 4.1 L removed. 3. Suspected SBP. We are still pending the fluid analysis. The patient has been started on antibiotics. 4. Anemia secondary to GI bleed. Patient is status post EGD. Findings have been reviewed. 5. Multiple gastric duodenal ulcers 6. Advanced cirrhosis of the liver with MELD score 34, Harlan Melara score of 12 complicated with ascites. Thrombocytopenia, splenomegaly. 7. Acute alcohol hepatitis with hepatitis discriminant function for estimating disease severity score of 48. We will start the patient on Trental pentoxifylline since there is the potential of SBP. 8. Clinical volume depletion. Patient will be started on gentle hydration overnight, and re- evaluate him in the morning. cc: Quang Marcelino MD MTDD
[2020-01-08] MEDS ORDERED: SANDOSTATIN SUBQ SCH (15:00)
[2020-01-08] MEDS: TRENTAL PO SCH (15:59)
[2020-01-08] MEDS ORDERED: PROAMATINE PO SCH (17:00)
--- NOTE | 2020-01-08 17:14 | NEPHROLOGY CONSULTATION ---
DATE: 01/08/2020 REASON FOR CONSULTATION: Acute kidney injury. HISTORY OF PRESENT ILLNESS: History is obtained entirely from the chart. The patient will arouse a little bit, but he does not answer any of my questions. He is a 44-year-old man with a history of alcoholic cirrhosis who has been admitted multiple times with GI bleeding from esophageal varices. He was brought in the emergency room at this time because of difficulty breathing and abdominal discomfort and swelling. Since admission he has gone through paracentesis with 4 L of fluid removed. CT with cirrhotic liver and ascites fatty infiltration, no mention of kidney disease. His urine output has been very low despite volume expansion with albumin and IV fluids. Blood pressure has been marginally low as well. No other nephrotoxic medications. He did not receive. IV contrast with his CAT scan. He did have urine electrolytes collected which demonstrated a low FENa. PAST MEDICAL HISTORY: As listed. HOME MEDICATIONS: None. ALLERGIES: None. FAMILY HISTORY: Otherwise, not obtainable. REVIEW OF SYSTEMS: Otherwise, not obtainable. PHYSICAL EXAMINATION: Vital Signs: Blood pressure 116/81, heart rate 100, respirations 16, afebrile. General: No acute distress. Skin: Warm and dry with jaundice. Multiple spider angiomata. HEENT: Pupils are equal. Oropharynx is dry. Neck: Neck veins are distended. Heart: Regular tachycardic. Lungs: Equal, shallow, no crackles. Abdomen: Distended and soft. Nontender. Bowel sounds are present. Extremities: 2+ edema. IMPRESSION: Acute kidney injury. Volume overload and low FENa. Presumably, hepatorenal syndrome. He would not be a liver transplant because of active alcohol abuse. As such, he is really not a candidate for dialysis as well. We will add octreotide and midodrine today. Continue albumin. Observe his response. cc: Tanner Juárez MD
[2020-01-08] MEDS: LACTULOSE PO SCH (22:24)
[2020-01-08] MEDS: ROCEPHIN 1 GM in NS 50 ML IV SCH (22:25)
[2020-01-09] MEDS: THIAMINE 100 MG in NS 50 ML IV SCH (00:02)
[2020-01-09] MEDS: NS 1,000 ML IV SCH (02:45)
[2020-01-09] MEDS: DILAUDID IV PRN ×3 (02:59→11:12)
[2020-01-09 07:10] LABS: BASO# 0.05 X1000 (0.0-0.2); BASO% 0.4 % (0.0-0.8); EOS# 0.34 X1000 (0.0-0.7); EOS% 2.8 % (0.0-10.0); HEMATOCRIT 22.1 % (42.0-52.0); HEMOGLOBIN 7.4 g/dL (14.0-18.0); IMM GRAN# 0.06 X1000 (0.0-0.04); IMM GRAN% 0.5 % (0.0-0.5); LYMPH# 1.55 X1000 (1.2-3.4); LYMPH% 12.8 % (20.5-51.1); MCH 32.2 PG (27-31); MCHC 33.5 g/dL (33-37); MCV 96.1 FL (81-99); MONO# 1.05 X1000 (0.11-0.59); MONO% 8.6 % (1.7-9.3); MPV 10.6 FL (7.4-10.4); NEUT# 9.09 X1000 (1.4-6.5); NEUT% 74.9 % (42.2-75.2); PLT 84 X1000 (130-400); RDW 21.9 % (11.5-14.5); WBC 12.14 X1000 (4.8-10.8)
[2020-01-09 07:29] LABS: ALBUMIN 2.8 g/dL (3.5-5.0); CALCIUM 8.2 mg/dL (8.8-10.2); CREATININE 4.2 mg/dL (0.7-1.2); PHOSPHORUS 4.3 mg/dL (2.7-4.5); POTASSIUM 3.3 mmol/L (3.5-5.1)
[2020-01-09] MEDS: PROTONIX IV SCH ×2 (10:57→21:53)
[2020-01-09] MEDS: ZINC SULFATE PO SCH (10:57)
[2020-01-09] MEDS: TRENTAL PO SCH ×3 (10:57→18:08)
[2020-01-09] MEDS: LACTULOSE PO SCH ×2 (10:57→20:36)
[2020-01-09] MEDS: CORGARD PO SCH (10:59)
--- NOTE | 2020-01-09 12:29 | NEPHROLOGY PROGRESS NOTE ---
DATE: 01/09/2020 SUBJECTIVE: He is much better today. He is awake, alert, greeted me. Does not remember meeting me yesterday. No shortness of breath, nausea or vomiting. OBJECTIVE: Vital Signs: Blood pressure 97/55, heart rate 84, respirations 20, afebrile. Intake and output are incomplete, but he did have at least 200 mL of urine output. Generally: Unchanged, except mental status as above. Neck: Neck veins are distended. Heart: Regular. No rubs. Lungs: Equal. Coarse. No crackles. Abdomen: Soft, distended. Bowel sounds present. Extremities: 2+ edema. IMPRESSION: Acute kidney injury. Presumed hepatorenal syndrome. His urine output is improved, and creatinine has improved. Continue albumin, midodrine, octreotide. Stop intravenous fluids. cc: Tanner Juárez MD
[2020-01-09] MEDS ORDERED: ALBUMIN 25% IV ONE (13:05)
--- NOTE | 2020-01-09 13:41 | PROGRESS NOTE ---
DATE: 01/09/2020 SUBJECTIVE: I have seen and examined Mr. Restrepo today. Mr. Restrepo refers to be doing a lot better, he is more awake and alert. Denies any new complaints. OBJECTIVELY: Vital: Blood pressure is 97/55, pulse 84, respirations 20, temperature 98.3 degrees. General: Mr. Restrepo is a 44-year-old male. He was in bed, in no distress. SKIN: Mucosa is pink and moist. About 2+ icteric.Chest: Air entry was bilaterally reduced, a few crackles posteriorly. Cardiovascular: Regular rate and rhythm. There are no murmurs, no rubs, no gallops. GI: Abdomen is soft, is distended. Positive fluid wave. Extremities: About 1+ pedal edema. The patient has positive JVD. 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 LABORATORY DATA: WBC is 12.12, hemoglobin is 7.4, platelet count 84,000. Chemistry is also reviewed. Creatinine is down to 4.2. ASSESSMENT: 1. Acute kidney injury secondary to hepatorenal syndrome. We will continue with octreotide, midodrine, and albumin. 2. Symptomatic ascites. Patient is status post 4.1 L removed. Fluid analysis was negative for spontaneous bacterial peritonitis. 3. Anemia secondary to gastrointestinal bleed. The patient is status post esophagogastroduodenoscopy. 4. Multiple gastric duodenal ulcers. We will continue with proton pump inhibitor. 5. Advanced cirrhosis of the liver with MELD score 34, Child Melara score of 12, complicated with ascites, thrombocytopenia, splenomegaly, gastrointestinal bleed. 6. Acute alcohol hepatitis with hepatitis discriminant function for estimating disease severity score of 48. The patient is on Pentoxifylline and not a steroid because of the suspicion of infection. 7. Altered mental status, has improved. Mr. Restrepo looks fairly stable. Hydration status has improved, so IV fluids have been discontinued. He actually looks slightly volume distended. We are going to continue with the octreotide, midodrine and albumin for the treatment of his hepatorenal syndrome. cc: Quang Marcelino MD
[2020-01-09 13:52] LABS: INR 1.74; PROTIME 20.7 Seconds (11.0-16.0)
[2020-01-09 13:58] LABS: ALB/GLOB RATIO 1.2; ALBUMIN 2.9 g/dL (3.5-5.0); DIRECT BILIRUBIN 7.2 mg/dL (0.00-0.20); TOTAL BILIRUBIN 10.06 mg/dL (0.20-1.00); TOTAL PROTEIN 5.4 g/dL (6.3-8.3)
--- NOTE | 2020-01-09 14:03 | GASTROENTEROLOGY PROGRESS NOTE ---
DATE: 01/09/2020 SUBJECTIVE: Mr. Ng is a 44-year-old male resting in bed. The patient has denied any nausea, vomiting or abdominal pain. He is currently on a clear liquid diet and is able to tolerate his diet well. The patient has denied having any bowel movements today. OBJECTIVE: Vital Signs: Temperature 98.1 degrees, pulse 76, respirations 16, blood pressure 98/51, oxygen saturation is 93% on room air. The patient's weight is 150 pounds. BMI is 22.8 kg/m2. General: He is alert, oriented x3, and in no acute distress. HEENT: Pale conjunctivae. Mild icterus. PERRL. Neck: Supple. Lungs: Clear to auscultation. Cardiovascular: Regular rate and rhythm. Abdomen: Abdomen is distended, mildly firm. Sterile dressing on the right side where the paracentesis was done. Active bowel sounds heard in all 4 quadrants. Extremities: No clubbing, no cyanosis, no edema. Pedal pulses 2+ present bilaterally. Neurological: Alert, oriented x3. LABS: WBCs are 12.14, RBCs 2.30, hemoglobin is 7.4, hematocrit is 22.1, platelet count is 84. Sodium 135, potassium 3.3, chloride is 100, carbon dioxide 20, anion gap is 15. BUN is 80, creatinine is 4.2, glucose is 116, calcium is 8.2, phosphorus 4.3, albumin is 2.8. The patient's peritoneal fluid analysis was negative for his SBP. EGD FINDINGS: He had an EGD done yesterday. There was a single small grade varix in the lower third of the esophagus. Stomach had small gastric varices in the gastric fundus without stigmata of recent bleeding. Multiple nonbleeding, free-ranging and clean-based ulcers ranging between 5 to 9 mm in size were found in the gastric antrum. Mild portal hypertensive gastropathy was found, free- ranging and clean-based ulcers ranging from 5 - 9 mm in size were found in the duodenal bulb and the second part of the duodenum. IMPRESSION AND PLAN: UGI bleed Acute blood loss anemia Elevated LFT's Alcoholic cirrhosis Ascites Gastric varices Mild portal hypertensive grastropathy Hypoalbuminemia H/o alcoholism H/o of drug abuse Nicotine dependency PLAN: Mr. Ng is a 44-year-old male with a history of alcoholic cirrhosis. GI is following him for his upper GI bleed. An EGD was done yesterday and the patient had some small grade varix in the esophagus, gastric varices in the stomach, and nonbleeding ulcers in the duodenum. The patient needs to continue PPIs twice a day. Started the patient on Nadolol 10 mg p.o. once daily. We will continue antibiotic Rocephin for 5 days for his SBP prophylaxis. The patient is advised to avoid NSAIDs and blood thinners. He is on lactulose 30 mL p.o. twice a day. The patient is also receiving albumin and Sandostatin per PCP. We will continue to monitor the patient's liver functions, enzymes and follow the plan of care per PCP. This plan was discussed with Dr. Gudino. Please call us for any further questions or concerns. Dictated by ALICIA Hair for Lester Gudino MD cc: Lester Gudino MD MTDD
[2020-01-09] MEDS: SANDOSTATIN 500 MICROGM in D5W 100 ML IV SCH (16:37)
[2020-01-09] MEDS: PROAMATINE PO SCH (18:08)
[2020-01-09] MEDS: TYLENOL PO PRN (20:35)
[2020-01-09] MEDS: NICODERM PATCH TD PRN (21:50)
[2020-01-09] MEDS: ROCEPHIN 1 GM in NS 50 ML IV SCH (21:53)
[2020-01-10] MEDS: THIAMINE 100 MG in NS 50 ML IV SCH (00:15)
[2020-01-10] MEDS: SANDOSTATIN 500 MICROGM in D5W 100 ML IV SCH ×3 (00:18→19:50)
[2020-01-10 07:49] LABS: BASO# 0.03 X1000 (0.0-0.2); BASO% 0.4 % (0.0-0.8); EOS# 0.26 X1000 (0.0-0.7); EOS% 3.4 % (0.0-10.0); HEMATOCRIT 21.4 % (42.0-52.0); IMM GRAN# 0.05 X1000 (0.0-0.04); IMM GRAN% 0.6 % (0.0-0.5); LYMPH# 1.12 X1000 (1.2-3.4); LYMPH% 14.5 % (20.5-51.1); MCHC 32.7 g/dL (33-37); MCV 97.7 FL (81-99); MONO# 0.75 X1000 (0.11-0.59); MONO% 9.7 % (1.7-9.3); MPV 10.5 FL (7.4-10.4); NEUT% 71.4 % (42.2-75.2); PLT 82 X1000 (130-400); RBC 2.19 XMIL (4.7-6.1); RDW 21.5 % (11.5-14.5); WBC 7.71 X1000 (4.8-10.8)
[2020-01-10 08:24] LABS: ALB/GLOB RATIO 1.6; ALBUMIN 3.2 g/dL (3.5-5.0); CALCIUM 8.3 mg/dL (8.8-10.2); CREATININE 3.3 mg/dL (0.7-1.2); DIRECT BILIRUBIN 6.7 mg/dL (0.00-0.20); PHOSPHORUS 3.7 mg/dL (2.7-4.5); TOTAL BILIRUBIN 10.72 mg/dL (0.20-1.00); TOTAL PROTEIN 5.2 g/dL (6.3-8.3)
[2020-01-10] MEDS: ALBUMIN 25% IV SCH (08:49)
[2020-01-10] MEDS: PROTONIX IV SCH ×3 (08:50→22:14)
[2020-01-10] MEDS: LACTULOSE PO SCH ×2 (08:50→20:12)
[2020-01-10] MEDS: TRENTAL PO SCH ×3 (08:51→17:02)
[2020-01-10] MEDS: ZINC SULFATE PO SCH (08:51)
[2020-01-10] MEDS: PROAMATINE PO SCH ×3 (08:51→17:02)
[2020-01-10] MEDS: CORGARD PO SCH (08:51)
[2020-01-10 09:11] LABS: INR 1.76
[2020-01-10] MEDS ORDERED: NS 500 ML ONE (10:52)
[2020-01-10] MEDS: DILAUDID IV PRN ×2 (14:18→19:58)
--- NOTE | 2020-01-10 14:35 | GASTROENTEROLOGY PROGRESS NOTE ---
DATE: 01/10/2020 SUBJECTIVE: Mr. Ng is a 44-year-old, male. The patient was sitting in bed, complaining of feeling nauseated. He has denied any vomiting. The patient also complaining of abdominal tenderness all over, rating it as 5/10, describing it as a dull aching pain. OBJECTIVE: Vital Signs: Temperature 98.1 degrees, pulse 66, respirations 18, blood pressure 95/47, oxygen saturation 98% on room air. The patient's weight is 150 pounds. BMI is 22.8 kg/m2. General: He is alert, oriented x3, and in no acute distress. HEENT: Pale conjunctivae. Mild icterus. PERRL. Neck: Supple. Lungs: Clear to auscultation. Cardiovascular: Regular rate and rhythm. Abdomen: Abdomen is distended, mildly firm. Active bowel sounds heard in all 4 quadrants. Extremities: No clubbing, no cyanosis, no edema. Pedal pulses 2+ present bilaterally. Neurologic: He is alert, oriented x3. Labs: WBCs are 7.71, RBCs 2.19, hemoglobin 7.0, hematocrit is 21.4, platelet count is 82,000. Sodium is 131, potassium is 3.0, chloride is 96, carbon dioxide is 23, anion gap is 12, BUN is 70, creatinine is 3.3, glucose 130, calcium 8.3, phosphorus 3.7. Total bilirubin is 10.72, AST is 116, ALT is 39, alkaline phosphatase is 146, albumin is 3.2. IMPRESSION AND PLAN: 1. UGI bleed. 2. Acute blood loss anemia. 3. Elevated liver function tests. 4. Alcoholic cirrhosis. 5. Ascites. 6. Gastroparesis. 7. Mild portal hypertensive gastropathy. 8. Hypoalbuminemia. 9. History of alcoholism. 10. History of drug abuse. 11. Nicotine dependency. PLAN: Mr. Ng is a 47-year-old, male with a history of alcoholic cirrhosis. GI has been following him for his upper GI bleed. Currently, the patient has denied noticing any bleeding episodes. His hemoglobin and hematocrit today are 7.0 and 21.4. The patient's EGD showed that he had some small grade varix in the esophagus and gastric varices in the stomach. Patient is receiving Nadolol, hold for HR < 55 and SBP < 100. We will continue patient with PPIs twice a day. The patient is on antibiotic Rocephin for his SBP prophylaxis. He is also currently receiving lactulose. The patient is on Vitamin K, Sandostatin, midodrine and albumin IV per PCP. Counselled patient on giving up alcohol and smoking cessation. We will continue to monitor the patient's H & H, LFT's and follow the plan of care per PCP. This plan was discussed with Dr. Gudino. Please call us for any further questions or concerns. Dictated by ALICIA Hair for Lester Gudino MD cc: Lester Gudino MD MTDD
[2020-01-10] MEDS ORDERED: VITAMIN K PO ONE (15:02)
--- NOTE | 2020-01-10 15:41 | PROGRESS NOTE ---
DATE: 01/10/2020 I have seen and examined Mr. Ng today. He refers to be doing well. He was actually requesting to know when he will be able to go home. Denies any chest pain. He said his abdomen feels slightly tense but not like before. OBJECTIVELY: Vitals: Blood pressure 95/47, pulse of 66, respirations 18, temperature 98.1 degrees. The patient is saturating 98% on room air. General: Mr. Ng is a 44-year-old gentleman. He is in bed, no distress. HEENT: Mucosa is pink and moist. 2+ icteric. Neck: Supple. Positive JVD. Respiratory: Air entry is bilaterally reduced, a few crackles posteriorly. Cardiovascular: Regular rate and rhythm. GI/Abdomen: Soft. It is distended. It is positive for fluid wave. Extremities: No pedal edema. 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 LABORATORY DATA: WBC is down to 7.71, hemoglobin is 7.0, platelet count of 82,000. Chemistry is also reviewed. Creatinine is down to 3.3. BUN is 70. ALT is trending down. ASSESSMENT: 1. Anemia secondary to acute gastrointestinal bleed. The patient is status post 2 PRBC transfusion. Hemoglobin and hematocrit improved; however, is down to 7.0. We will continue to monitor. If it goes below 7, we will transfuse. 2. Acute kidney injury secondary to hepatorenal syndrome. Patient is currently on octreotide, midodrine, and albumin. Creatinine is trending down. 3. Symptomatic ascites. Patient is status post 4.1 ascitic fluid removal. Fluid analysis was negative for SBP. 4. Advanced cirrhosis of the liver. MELD score 33. Child Melara class C, complicated with ascites, thrombocytopenia, splenomegaly, and gastrointestinal bleed, and coagulopathy. Gastroenterology is on board. 5. Acute alcohol hepatitis with hepatitis discriminant function for estimating disease severity score of 50. The patient is on pentoxifylline. 6. Altered mental status on presentation, questionable for hepatic encephalopathy. Patient has improved. We will continue with his lactulose. 7. Hypokalemia, replaced. 8. Multiple gastric duodenal ulcers found on EGD. We will continue with PPI. PLAN: In general, I think Mr. Ng is fairly stable but extremely complicated case with a very poor prognosis. He has end-stage liver disease with multiple complications including hepatorenal syndrome at this point. He continues, unfortunately, to be drinking, and he presented with acute alcohol hepatitis. He seems to be fairly stable at this point. We are going to continue with the current management, re-evaluate him in the morning. He is very anxious, wants to go home. Unsure if he just wants to go and continue with his habits. cc: Quang Marcelino MD MTDD
[2020-01-10] MEDS: ROCEPHIN 1 GM in NS 50 ML IV SCH (22:14)
[2020-01-11] MEDS: THIAMINE 100 MG in NS 50 ML IV SCH (00:40)
[2020-01-11] MEDS: DILAUDID IV PRN ×4 (03:34→21:37)
[2020-01-11 07:06] LABS: BASO# 0.02 X1000 (0.0-0.2); BASO% 0.3 % (0.0-0.8); EOS# 0.24 X1000 (0.0-0.7); EOS% 3.3 % (0.0-10.0); HEMATOCRIT 22.9 % (42.0-52.0); HEMOGLOBIN 7.4 g/dL (14.0-18.0); IMM GRAN# 0.04 X1000 (0.0-0.04); IMM GRAN% 0.5 % (0.0-0.5); LYMPH# 1.16 X1000 (1.2-3.4); LYMPH% 15.9 % (20.5-51.1); MCHC 32.3 g/dL (33-37); MCV 99.1 FL (81-99); MONO# 0.97 X1000 (0.11-0.59); MONO% 13.3 % (1.7-9.3); MPV 9.2 FL (7.4-10.4); NEUT# 4.85 X1000 (1.4-6.5); NEUT% 66.7 % (42.2-75.2); PLT 80 X1000 (130-400); RBC 2.31 XMIL (4.7-6.1); RDW 21.3 % (11.5-14.5); WBC 7.28 X1000 (4.8-10.8)
[2020-01-11 07:14] LABS: INR 1.81; PROTIME 21.4 Seconds (11.0-16.0)
[2020-01-11 07:39] LABS: ALB/GLOB RATIO 1.1; ALBUMIN 3.1 g/dL (3.5-5.0); CALCIUM 8.3 mg/dL (8.8-10.2); CREATININE 2.2 mg/dL (0.7-1.2); POTASSIUM 3.1 mmol/L (3.5-5.1); TOTAL BILIRUBIN 10.37 mg/dL (0.20-1.00); TOTAL PROTEIN 5.9 g/dL (6.3-8.3)
[2020-01-11] MEDS: SANDOSTATIN 500 MICROGM in D5W 100 ML IV SCH (08:08)
[2020-01-11] MEDS: LACTULOSE PO SCH ×2 (08:10→23:57)
[2020-01-11] MEDS: TRENTAL PO SCH ×3 (08:11→16:56)
[2020-01-11] MEDS: CORGARD PO SCH (08:11)
[2020-01-11] MEDS: ZINC SULFATE PO SCH (08:11)
[2020-01-11] MEDS: PROAMATINE PO SCH ×3 (08:11→16:56)
[2020-01-11] MEDS ORDERED: KLOR-CON PO ONE (08:39)
[2020-01-11] MEDS: ALBUMIN 25% IV SCH (08:41)
[2020-01-11] MEDS: NICODERM PATCH TD PRN (08:45)
[2020-01-11] MEDS: PROTONIX IV SCH ×2 (09:35→23:57)
[2020-01-11] MEDS: SODIUM CHLORIDE 0.9% INJ SCH ×2 (09:36→23:57)
[2020-01-11] MEDS: VITAMIN K PO SCH (11:05)
--- NOTE | 2020-01-11 13:54 | GASTROENTEROLOGY PROGRESS NOTE ---
DATE: 01/11/2020 SUBJECTIVE: Mr. Ng is 44-year-old male resting in bed. He did mention feeling better today. He does have some mild abdominal tenderness. The patient is currently on a clear liquid diet and is able to tolerate his diet well. He has denied any nausea today. The patient had a few bowel movements yesterday. He has denied one today. OBJECTIVE: Vital Signs: Temperature 97.8 degrees, pulse 62, respirations 15, blood pressure 94/55, oxygen saturation 100% on room air. The patient's weight is 150 pounds. BMI is 22.8 kg/meter sq. General: He is alert and oriented x3, and in no acute distress. HEENT: Pale conjunctivae. Mild icterus. PERRL. Neck: Supple. Lungs: Clear to auscultation. Cardiovascular: Regular rate and rhythm. Abdomen: Mildly distended. generalized tenderness, Active bowel sounds heard in all 4 quadrants. Extremities: No clubbing. No cyanosis. No edema. Pedal pulses 2+ present bilaterally. Neurologic: Alert and oriented x3. LABORATORY: WBCs are 7.28, RBC 2.31, hemoglobin 7.4, hematocrit 22.9, and platelet is 80,000. PT is 21.4, INR is 1.81. Sodium is 136, potassium 3.1, chloride 100, carbon dioxide 24, anion gap 12, BUN is 51, and creatinine is 2.2. Glucose is 152. Calcium is 8.3, total bilirubin is 10.37, AST 102, ALT 36, alkaline phosphatase is 158, and albumin is 3.1. IMPRESSION AND PLAN: GI Bleed Alcoholism Elevated LFT's Esophageal varices Gastric varices on recent EGD per Dr Solano Renal insufficiency PLAN: Mr. Ng is a 47-year-old male with a history of alcoholic cirrhosis. GI has been following him for his upper GI bleed. Currently, patient has denied having any bleeding episodes. His hemoglobin and hematocrit today is 7.4 and 22.9. It has been trending upwards. We will continue patient with the antibiotic Rocephin for his SBP prophylaxis. He is receiving nadolol and Hold for heart rate < 55 and systolic blood pressure <100. Continue patient with PPIs twice a day and lactulose. The patient is on vitamin K, albumin, midodrine, and also receiving thiamine and zinc. The patient has been counseled for giving up alcohol and smoking cessation. We will continue to monitor the patient's H & H, LFTs, and follow the plan of care per PCP. This plan was discussed with Dr. Olson. Please call us for any further questions or concerns. Dictated by ALICIA Hair for Oscar Olson MD cc: Oscar lOson MD I have seen and examined the patient myself and I agree with the above plan of care. Please call us with any further questions or concerns. SELMA
--- NOTE | 2020-01-11 15:26 | PROGRESS NOTE ---
DATE: 01/11/2020 SUBJECTIVE: I have seen and examined Ms. Restrepo this morning. He refers to be feeling a whole lot better. No new complaints. OBJECTIVE: Vital signs: Blood pressure 94/55, pulse of 62, respirations 16, temperature 97.8 degrees. General: Mr. Restrepo is a 44-year-old gentleman. He was in bed in no distress. HEENT: Mucosa is pink and moist, 2+ icteric. Neck: Supple. Positive mild JVD. Respiratory: System air entry is bilaterally reduced. A few crackles posteriorly. Cardiovascular: Regular rate and rhythm. No murmurs, no rubs, no gallops. GI: Abdomen was soft, distended with positive fluid wave. There is also some a collection bag on the right side of the abdominal wall because of constant drainage from the site of the paracentesis. Extremities: No pedal edema. JUDGE: Patient is awake, alert, oriented. There is no focal deficit. LABORATORY DATA: WBC is 7.28, hemoglobin is 7.4, platelet count of 880,000. Chemistry is also reviewed. Creatinine is down to 2.2. AST is down to 102, ALT has normalized. Total bilirubin is still 10.37. INR of 1.81. ASSESSMENT: 1. Anemia on presentation secondary to acute gastrointestinal bleed. The patient presented with hemoglobin of 5.4. He has been transfused 2 packed red blood cells. Hemoglobin this morning is 7.4. He is not showing any overt signs of ongoing blood loss. 2. Acute kidney injury secondary to hepatorenal syndrome. The patient has been started on octreotide for 2 days, albumin and midodrine. Creatinine is trending down. Nephrology is on board. 3. Symptomatic ascites. The patient is status post paracenteses with 4.1 ascitic fluid removed on admission. Fluid analysis was negative for SBP. The patient continues to have ongoing leaking from the site. An ostomy bag has been put over the site. 4. Acute alcohol hepatitis with hepatitis discriminant function for estimating disease severity score of 50. Patient is currently on pentoxifylline. 5. Altered mental status on presentation, questionable for hepatic encephalopathy, improved. Patient is on lactulose. 6. Multiple gastric duodenal ulcers found on esophagogastroduodenoscopy. Patient is on proton pump inhibitor. 7. Advanced alcohol-induced cirrhosis of the liver. MELD score of 33. Melara class C, complicated with ascites, thrombocytopenia, splenomegaly, gastrointestinal bleed and coagulopathy. Gastroenterology is on board. 8. Alcohol use and abuse. Patient has been counseled. PLAN: In general Mr. Restrepo is progressively getting better. Today is day 4 in the hospital. Presented initially because of intermittent melanic stool and was found to be remarkably anemic with symptomatic ascites. He underwent paracentesis as well as EGD. His hospital course got complicated with acute renal failure, which we think is due to hepatorenal syndrome. He is currently on octreotide, midodrine and albumin and he seems to be responding. We will follow up with further recommendations from Nephrology and GI going forward. DISPOSITION: The disposition is going to depend on the rest of the hospital course and final recommendations from the other subspecialties. cc: Quang Marcelino MD
--- NOTE | 2020-01-11 17:54 | NEPHROLOGY PROGRESS NOTE ---
DATE: 01/11/2020 SUBJECTIVE: He states he is feeling much better today. Good urine output. No shortness of breath. OBJECTIVE: Vital Signs: Blood pressure 90/56, heart rate 66, respiration 18, afebrile. General: No acute distress. Skin: Warm and dry. Neck: Neck veins are 6 cm. Heart: Regular. Lungs: Equal. No crackles. Abdomen: Distended, soft. Nontender. Extremities: Minimal edema. IMPRESSION: Acute kidney injury. Presumed hepatorenal syndrome. He has responded promptly to therapy using albumin, octreotide, midodrine. Continue current care. cc: Tanner Juárez MD
[2020-01-11] MEDS: ROCEPHIN 1 GM in NS 50 ML IV SCH (23:57)
[2020-01-12] MEDS: THIAMINE 100 MG in NS 50 ML IV SCH (00:43)
[2020-01-12] MEDS: DILAUDID IV PRN ×4 (03:44→17:33)
[2020-01-12 07:11] LABS: BASO# 0.03 X1000 (0.0-0.2); BASO% 0.5 % (0.0-0.8); EOS# 0.22 X1000 (0.0-0.7); EOS% 3.7 % (0.0-10.0); HEMATOCRIT 24.5 % (42.0-52.0); HEMOGLOBIN 7.7 g/dL (14.0-18.0); IMM GRAN# 0.03 X1000 (0.0-0.04); IMM GRAN% 0.5 % (0.0-0.5); LYMPH# 0.98 X1000 (1.2-3.4); LYMPH% 16.5 % (20.5-51.1); MCHC 31.4 g/dL (33-37); MCV 101.7 FL (81-99); MONO# 0.92 X1000 (0.11-0.59); MONO% 15.5 % (1.7-9.3); MPV 10.5 FL (7.4-10.4); NEUT# 3.77 X1000 (1.4-6.5); NEUT% 63.3 % (42.2-75.2); PLT 84 X1000 (130-400); RBC 2.41 XMIL (4.7-6.1); WBC 5.95 X1000 (4.8-10.8)
[2020-01-12 07:34] LABS: INR 1.77
[2020-01-12 07:39] LABS: ALB/GLOB RATIO 1.5; ALBUMIN 3.2 g/dL (3.5-5.0); CREATININE 1.4 mg/dL (0.7-1.2); DIRECT BILIRUBIN 5.8 mg/dL (0.00-0.20); PHOSPHORUS 1.8 mg/dL (2.7-4.5); POTASSIUM 3.3 mmol/L (3.5-5.1); TOTAL BILIRUBIN 9.81 mg/dL (0.20-1.00); TOTAL PROTEIN 5.4 g/dL (6.3-8.3)
[2020-01-12] MEDS: PROAMATINE PO SCH (08:59)
[2020-01-12] MEDS: TRENTAL PO SCH (08:59)
[2020-01-12] MEDS: LACTULOSE PO SCH (08:59)
[2020-01-12] MEDS: ZINC SULFATE PO SCH (08:59)
[2020-01-12] MEDS: SODIUM CHLORIDE 0.9% INJ SCH (09:01)
[2020-01-12] MEDS: PROTONIX IV SCH (09:01)
[2020-01-12] MEDS: VITAMIN K PO SCH (09:02)
[2020-01-12] MEDS: CORGARD PO SCH (09:06)
[2020-01-12] MEDS: TYLENOL PO PRN (09:09)
[2020-01-12] MEDS ORDERED: ALDACTONE PO SCH (10:30)
--- NOTE | 2020-01-12 12:15 | GASTROENTEROLOGY PROGRESS NOTE ---
DATE: 01/12/2020 SUBJECTIVE: Mr. Ng is a 44-year-old male who is resting in bed. The patient mentioned feeling much better today. He has denied any abdominal pain, nausea or vomiting. He is currently on a clear liquid diet. His diet has been advanced to heart healthy diet. The patient did have a couple of bowel movements yesterday, but he has denied any today. OBJECTIVE: Vital Signs: Temperature 98.3 degrees, pulse 69, respirations 18, blood pressure 101/65, oxygen saturation 100% on room air. The patient's weight is 150 pounds. BMI is 22.8 kg/m2. General: He is alert, oriented x3, and in no acute distress. HEENT: Pale conjunctivae, mild icterus. PERRL. Neck: Supple. Lungs: Clear to auscultation. Cardiovascular: Regular rate and rhythm. Abdomen: Mildly distended, nontender. Active bowel sounds heard in all 4 quadrants. Extremities: No clubbing, no cyanosis, no edema. Pedal pulses 2+ present bilaterally. Neurologic: Alert and oriented x3. LABS: WBCs are 5.95, RBC is 2.41, hemoglobin is 7.7, hematocrit is 24.5, platelet count is 84,000. Sodium 131, potassium 3.3, chloride is 104, carbon dioxide 24, anion gap 13, BUN 28, creatinine is 1.4, glucose 143, calcium 8.0, phosphorus 1.8, total bilirubin 9.81, AST 90, ALT 32, alkaline phosphatase is 157. IMPRESSION AND PLAN: - GI bleed - Acute blood loss anemia - Decompensated ETOH cirrhosis with ascites - Gastric ulcers - Esophageal varices - Gastric varices - Hypokalemia - Alcoholism - Tobacco abuse - Thrombocytopenia PLAN: Mr. Ng is a 47-year-old male with a history of alcoholic cirrhosis. GI has been following him for upper GI bleed. Currently, the patient has denied any bleeding episodes. His hemoglobin and hematocrit today is 7.7 and 24.5. It is slightly trended upwards. We will continue patient with nadolol and hold for heart rate less than 55. The patient will continue with PPI. We have discontinued patient's lactulose, vitamin K, midodrine, octreotide and started the patient on Aldactone 25 mg p.o. daily. The patient has been counseled for giving up alcohol and smoking cessation. We will continue to monitor the patient's hemoglobin and hematocrit and LFTs and follow the plan of care per PCP. This plan was discussed with Dr. Solano. Please call us for any further questions or concerns. Dictated by ALICIA Hair for Keven Solano MD Physician Attestation I have seen and examined the patient. I have discussed and reviewed the note by Evelyn VARGAS and agree with findings and plan as documented. In brief, Mr. Ng is a 47 year old man with decompensated ETOH cirrhosis with ascites who presented with melena, worsening ascites, acute kidney injury, and worsening decompensated liver disease. EGD on 01/07 showed small grade I varix, small GOV2 gastric varices, and multiple clean-based gastric ulcers and duodenal ulcers in the setting of NSAID use. He is s/p LVP that was negative for SBP. He was started on nadolol; HR at goal. Will start patient on aldactone 25mg daily. His DIMITRY has improved significantly. He will need follow-up in clinic in 1-2 weeks. MTDD
--- NOTE | 2020-01-12 16:12 | NEPHROLOGY PROGRESS NOTE ---
DATE: 01/12/2020 SUBJECTIVE: He feels much better. Less abdominal discomfort. OBJECTIVE: Vital Signs: Blood pressure 91/49, heart rate 73, respiration 18, afebrile. General: No acute distress. Skin: Jaundiced with multiple spiders. Conjunctivae are jaundiced. Neck: Neck veins are not distended. Heart: Regular. Lungs: Equal. No crackles. Abdomen: Benign. Extremities: Minimal edema. IMPRESSION: Acute kidney injury. This is resolving. His octreotide and midodrine have been discontinued. We will sign off today. cc: Tanner Juárez MD
[2020-01-12 19:54] VITALS: BP 94/57
--- NOTE | 2020-01-12 20:24 | DISCHARGE SUMMARY ---
ADMISSION DATE: 01/07/2020 DISCHARGE DATE: 01/12/2020 DISCHARGE DIAGNOSIS: 1. Hepatorenal syndrome. 2. Alcoholic cirrhosis with decompensation. 3. Esophageal varices. PROCEDURES: Endoscopy. CONSULTATIONS: Gastroenterology and Dr. Juárez, Nephrology. Briefly, this is a 44-year-old male who is still actively drinking, has known cirrhosis. He has had upper GI bleeds previously. He started having abdominal pain and melena. Hemoglobin and hematocrit was 5 and 16. He received transfusion total of 2 units. His hemoglobin and hematocrit has improved Subsequently. He had paracentesis done as well because he had symptomatic ascites. 4.1 L was removed. GI was consulted, had seen him previously and he was placed on PPI and Rocephin. Endoscopy was performed that was on the , may have been on the and he had a single grade 1 varix in the lower 3rd of the esophagus, he had gastric varices and he had some nonbleeding clean base ulcers in the duodenal bulb. He was placed on PPIs and hemoglobin and hematocrit slowly improved. He did develop renal failure and Dr. Juárez was consulted. On admission his initial creatinine was around 4 to 5 but it clinically improved with hydration. On the day of discharge is down to 28 and 1.4. Patient was placed on Aldactone. He was also given potassium. DISCHARGE MEDICATIONS: He will be given nadolol 20 daily, Prilosec 40 b.i.d., Aldactone 25 daily, Lasix probably 20 daily, thiamine 100 daily. FOLLOWUP: He is told to follow up in 1 week with PCP and Dr. Solano in 1 to 2 weeks for repeat labs. Continue to follow closely. He is to return for any bleeding. DISCHARGE INSTRUCTIONS: He was advised to avoid Tylenol and abstain from alcohol completely. 2 g sodium restriction and 2 L fluid restriction a day. TIME SPENT: 32 minutes. cc: MD Dr. Russ Fu
== END 2020-01-12 20:00 | disposition home or self-care (01) | DRG 432 ==
LOC: ED 17:14 → ICU 22:28 → SUATTDRO 22:28 → 3N 01-08 16:52
PROVIDERS: ATTEND Internal Medicine